=== PATIENT | female | born 1970 | race African-American/Black ===

== ENCOUNTER 2017-12-26 21:08 | Inpatient (IN) | payer MEDICAID ==
[~2017-12-26] VITALS: Ht 157.5 cm; Wt 130.0 kg
[2017-12-26 22:07] LABS: Basophils # (auto) 0.1 uL; Eosinophils # (auto) 0.1 uL; Eosinophils % (auto) 1.2 % (0.0-7.0); Hemoglobin 7.9 g/dL (12.2-16.2); Mean Corpuscular Hemoglobin 15.9 pg (28.0-32.0); Monocytes # (auto) 0.6 uL; Red Cell Distribution Width 18.9 % (11.8-14.3); White Blood Cell 11.2 10^3/uL (4.4-10.8)
[2017-12-26 22:08] LABS: Basophils % (auto) 0.9 % (0.0-2.0); Hematocrit 28.5 % (36.0-46.0); Lymphocytes # (auto) 2.1 uL; Lymphocytes % (auto) 19.2 % (10.0-50.0); Mean Corpuscular Hgb Conc. 27.6 g/dL (32.0-36.0); Mean Corpuscular Volume 57.6 fL (80.0-100.0); Monocytes % (auto) 5.6 % (0.0-12.0); Neutrophils # (auto) 8.2 uL; Neutrophils % (auto) 73.1 % (37.0-80.0); Platelet Count (auto) 425 10^3/uL (140-450); Red Blood Cells 4.95 10^6/uL (4.0-5.20)
[2017-12-26 22:30] LABS: Albumin 3.5 g/dL (3.4-5.0); BUN/Creatinine Ratio 7.4; Bilirubin, Total 0.3 mg/dL (0.2-1.0); Calcium 8.9 mg/dL (8.5-10.1); Magnesium 2.5 mg/dL (1.6-2.6); Potassium 3.9 mmol/L (3.5-5.1); Total Protein 8.4 g/dL (6.4-8.2)
[2017-12-26 22:45] LABS: INR 0.92 (0.9-1.15); Partial Thromboplastin Time 25.6 sec (23.78-33.04); Prothrombin Time 9.9 sec (9.27-12.13)
[2017-12-26 22:52] LABS: Urine Bacteria NONE SEEN /hpf (None Seen); Urine Blood Negative /uL (Negative); Urine Specific Gravity 1.008 (1.001-1.035); Urine WBC 10 /hpf (0 - 5)
[2017-12-27] MEDS ORDERED: ONDANSETRON HCL 4 MG/2 ML VIAL IV ONE ×2 (02:45)
[2017-12-27] MEDS ORDERED: HYDROmorphone HCL 2 MG/ML VL IV ONE ×2 (02:45)
[2017-12-27] MEDS ORDERED: cefTRIAXone 1GM/10ml IVPUSH 10 ML IV ONE (03:45)
[2017-12-27] MEDS ORDERED: ACETAMINOPHEN 500 MG TAB PO PRN (04:45)
[2017-12-27] MEDS ORDERED: HYDROcodone-ACET 5/325MG TAB PO PRN (04:45)
[2017-12-27] MEDS: metroNIDAZOLE 500MG/100ML 100 ML IV SCH ×3 (04:47→21:36)
[2017-12-27] MEDS: SODIUM CHLORIDE 0.9% 1,000 ML IV SCH ×2 (04:47→14:18)
[2017-12-27] MEDS ORDERED: LIDOCAINE HCL 2% TOP JELLY 5ML TOP ONE (04:57)
[2017-12-27] MEDS ORDERED: diphenhdrAMINE HCL 50 MG/1 ML VL IV ONE (05:30)
[2017-12-27 07:25] LABS: Eosinophils # (auto) 0.2 uL; Monocytes # (auto) 0.6 uL; Nucleated Red Blood Cells % 0.1 %
[2017-12-27 07:28] LABS: Basophils # (auto) 0 uL; Basophils % (auto) 0.5 % (0.0-2.0); Eosinophils % (auto) 2.2 % (0.0-7.0); Hematocrit 26.2 % (36.0-46.0); Lymphocytes # (auto) 1.9 uL; Lymphocytes % (auto) 22.2 % (10.0-50.0); Mean Corpuscular Hemoglobin 16.3 pg (28.0-32.0); Mean Corpuscular Volume 58.1 fL (80.0-100.0); Monocytes % (auto) 7.2 % (0.0-12.0); Neutrophils # (auto) 5.9 uL; Neutrophils % (auto) 67.9 % (37.0-80.0); Platelet Count (auto) 407 10^3/uL (140-450); Red Blood Cells 4.51 10^6/uL (4.0-5.20); Red Cell Distribution Width 18.6 % (11.8-14.3); White Blood Cell 8.7 10^3/uL (4.4-10.8)
[2017-12-27 07:34] LABS: Hemoglobin 7.6 g/dL (12.2-16.2)
[2017-12-27 07:47] LABS: BUN/Creatinine Ratio 8.8; Calcium 8.1 mg/dL (8.5-10.1); Potassium 3.7 mmol/L (3.5-5.1)
[2017-12-27 08:10] VITALS: BP 140/85
[2017-12-27 09:55] VITALS: BP 135/71
[2017-12-27] MEDS: MORPHINE SULF INJ 2 MG/ML SYRINGE 1ML IV PRN ×3 (09:55→20:19)
[2017-12-27 13:00] VITALS: BP 120/57
[2017-12-27 17:00] VITALS: BP 138/84
[2017-12-27] MEDS: ONDANSETRON HCL 4 MG/2 ML VIAL IV PRN (20:19)
[2017-12-27] MEDS: cefTRIAXone 1GM/10ml IVPUSH 10 ML IV SCH (21:36)
[2017-12-27 22:08] VITALS: BP 145/68
[2017-12-28] MEDS: SODIUM CHLORIDE 0.9% 1,000 ML IV SCH ×3 (00:24→21:11)
[2017-12-28] MEDS: ONDANSETRON HCL 4 MG/2 ML VIAL IV PRN ×5 (00:36→23:20)
[2017-12-28] MEDS: MORPHINE SULF INJ 2 MG/ML SYRINGE 1ML IV PRN ×4 (00:36→23:20)
[2017-12-28 05:48] VITALS: BP 149/77
[2017-12-28] MEDS: metroNIDAZOLE 500MG/100ML 100 ML IV SCH ×3 (06:10→21:12)
[2017-12-28 08:00] VITALS: BP 140/78
[2017-12-28 12:00] VITALS: BP 139/78
[2017-12-28 17:00] VITALS: BP 134/75
[2017-12-28] MEDS: cefTRIAXone 1GM/10ml IVPUSH 10 ML IV SCH (21:11)
[2017-12-28 22:00] VITALS: BP 148/87
[2017-12-29] VITALS (10 sets, daily range): BP systolic 99–159; BP diastolic 63–93
[2017-12-29] MEDS: MORPHINE SULF INJ 2 MG/ML SYRINGE 1ML IV PRN ×4 (03:09→21:10)
[2017-12-29] MEDS: ONDANSETRON HCL 4 MG/2 ML VIAL IV PRN ×4 (03:10→21:10)
[2017-12-29] MEDS: metroNIDAZOLE 500MG/100ML 100 ML IV SCH ×2 (05:58→14:00)
[2017-12-29] MEDS: SODIUM CHLORIDE 0.9% 1,000 ML IV SCH ×2 (05:59→16:45)
[2017-12-29 06:32] LABS: Basophils # (auto) 0 uL; Eosinophils # (auto) 0.2 uL; Lymphocytes # (auto) 1.3 uL; Mean Corpuscular Hgb Conc. 28.6 g/dL (32.0-36.0); Nucleated Red Blood Cells % 0.2 %; Red Cell Distribution Width 18.6 % (11.8-14.3); White Blood Cell 6.5 10^3/uL (4.4-10.8)
[2017-12-29 06:38] LABS: Basophils % (auto) 0.5 % (0.0-2.0); Eosinophils % (auto) 3.2 % (0.0-7.0); Hematocrit 24.5 % (36.0-46.0); Lymphocytes % (auto) 20.3 % (10.0-50.0); Mean Corpuscular Hemoglobin 16.8 pg (28.0-32.0); Mean Corpuscular Volume 58.6 fL (80.0-100.0); Monocytes # (auto) 0.4 uL; Monocytes % (auto) 6.9 % (0.0-12.0); Neutrophils # (auto) 4.5 uL; Neutrophils % (auto) 69.1 % (37.0-80.0); Platelet Count (auto) 326 10^3/uL (140-450); Red Blood Cells 4.18 10^6/uL (4.0-5.20)
[2017-12-29 06:43] LABS: Albumin 2.9 g/dL (3.4-5.0); Bilirubin, Total 0.3 mg/dL (0.2-1.0); Potassium 3.7 mmol/L (3.5-5.1); Total Protein 7.3 g/dL (6.4-8.2)
[2017-12-29] MEDS: cefTRIAXone 1GM/10ml IVPUSH 10 ML IV SCH (22:24)
[2017-12-30] VITALS (8 sets, daily range): BP systolic 140–159; BP diastolic 68–93
[2017-12-30] MEDS: SODIUM CHLORIDE 0.9% 1,000 ML IV SCH ×3 (02:45→21:29)
[2017-12-30] MEDS: metroNIDAZOLE 500MG/100ML 100 ML IV SCH ×4 (02:48→21:28)
[2017-12-30] MEDS: ONDANSETRON HCL 4 MG/2 ML VIAL IV PRN ×3 (02:48→12:58)
[2017-12-30] MEDS: MORPHINE SULF INJ 2 MG/ML SYRINGE 1ML IV PRN ×4 (02:48→19:40)
[2017-12-30] MEDS ORDERED: GASTROGRAFIN 120 ML SOL ONE (14:36)
[2017-12-30] MEDS: cefTRIAXone 1GM/10ml IVPUSH 10 ML IV SCH (20:30)
[2017-12-31] MEDS: ONDANSETRON HCL 4 MG/2 ML VIAL IV PRN ×4 (02:58→22:39)
[2017-12-31] MEDS: MORPHINE SULF INJ 2 MG/ML SYRINGE 1ML IV PRN ×4 (03:01→22:39)
[2017-12-31 05:00] VITALS: BP 143/90
[2017-12-31] MEDS: metroNIDAZOLE 500MG/100ML 100 ML IV SCH ×3 (05:10→22:38)
[2017-12-31] MEDS: SODIUM CHLORIDE 0.9% 1,000 ML IV SCH ×3 (06:55→22:39)
[2017-12-31 08:16] VITALS: BP 146/77
[2017-12-31 13:50] VITALS: BP 169/77
[2017-12-31 16:23] VITALS: BP 163/79
[2017-12-31] MEDS ORDERED: amLODIPine BESYLATE 5 MG TAB PO SCH (18:33)
[2017-12-31] MEDS ORDERED: ENALAPRILAT 1.25 MG/ML-1ML VIAL IV PRN (19:00)
[2017-12-31 20:10] VITALS: BP 132/91
[2017-12-31] MEDS: cefTRIAXone 1GM/10ml IVPUSH 10 ML IV SCH (20:52)
[2017-12-31 22:00] VITALS: BP 159/94
[2018-01-01 05:00] VITALS: BP 179/82
[2018-01-01] MEDS: metroNIDAZOLE 500MG/100ML 100 ML IV SCH ×3 (05:24→21:32)
[2018-01-01 06:11] VITALS: BP 138/87
[2018-01-01] MEDS: ONDANSETRON HCL 4 MG/2 ML VIAL IV PRN (06:43)
[2018-01-01] MEDS ORDERED: LABE100T4 PO (07:06)
[2018-01-01] MEDS: MORPHINE SULF INJ 2 MG/ML SYRINGE 1ML IV PRN (08:52)
[2018-01-01 08:58] VITALS: BP 129/79
[2018-01-01 12:47] VITALS: BP 151/91
[2018-01-01] MEDS: SODIUM CHLORIDE 0.9% 1,000 ML IV SCH (16:44)
[2018-01-01 17:05] VITALS: BP 144/85
[2018-01-01] MEDS: cefTRIAXone 1GM/10ml IVPUSH 10 ML IV SCH (20:34)
[2018-01-01 21:46] VITALS: BP 142/93
[2018-01-02] MEDS: SODIUM CHLORIDE 0.9% 1,000 ML IV SCH ×2 (01:57→11:39)
[2018-01-02 04:32] VITALS: BP 140/83
[2018-01-02] MEDS: metroNIDAZOLE 500MG/100ML 100 ML IV SCH ×2 (05:04→14:00)
[2018-01-02 08:52] VITALS: BP 158/90
[2018-01-02 11:53] VITALS: BP 160/97
== END 2018-01-02 16:40 | disposition home or self-care (01) | DRG 254 ==
LOC: ER 21:08 → OVERFLOW 21:09 → WEST WING 12-27 08:41
PROVIDERS: ADMIT Nurse Practitioner Family; ATTEND Internal Medicine
PROC: 0D9670Z Drainage of Stomach with Drainage Device, Via Natural or Artificial Opening (ICD-10-PCS; principal; 2017-12-27)
PROC: 30233N1 Transfusion of Nonautologous Red Blood Cells into Peripheral Vein, Percutaneous Approach (ICD-10-PCS; 2017-12-29)
DX: K43.6 Other and unspecified ventral hernia with obstruction, without gangrene (principal); E66.01 Morbid (severe) obesity due to excess calories; N30.00 Acute cystitis without hematuria; Z68.43 Body mass index [BMI] 50.0-59.9, adult; J45.909 Unspecified asthma, uncomplicated; I10 Essential (primary) hypertension; Z90.49 Acquired absence of other specified parts of digestive tract
CPT/HCPCS: 36415; 74176; 74250; 80048; 80053; 81001; 81025; 82150; 83690; 83735; 85014; 85018; 85025; 85610; 85730; 86850; 86900; 86901; 86920; 96374; 96375; 96376; J0696; J2405; J3490

== ENCOUNTER 2018-02-15 13:02 | Inpatient (IN) | payer MEDICAID ==
[~2018-02-15] VITALS: Ht 157.5 cm; Wt 150.0 kg
[~2018-02-15 13:02] MED LIST: FER325T PO; LABE100T4 PO
[2018-02-15] MEDS ORDERED: PANTOPRAZOLE 40 MG/10 ML VIAL IV STA (14:32)
[2018-02-15] MEDS ORDERED: SODIUM CHLORIDE 0.9% 500 ML IVB ONE (14:32)
[2018-02-15] MEDS ORDERED: MORPHINE SULFATE 4 MG/ML SYR/VIAL IV ONE (14:45)
[2018-02-15] MEDS ORDERED: ONDANSETRON HCL 4 MG/2 ML VIAL IV ONE (14:45)
[2018-02-15 15:13] LABS: Eosinophils # (auto) 0.1 uL; Nucleated Red Blood Cells % 0.1 %
[2018-02-15 15:14] LABS: Basophils # (auto) 0.1 uL; Basophils % (auto) 1.1 % (0.0-2.0); Eosinophils % (auto) 1.4 % (0.0-7.0); Hematocrit 34.3 % (36.0-46.0); Hemoglobin 9.9 g/dL (12.2-16.2); Lymphocytes # (auto) 1.5 uL; Lymphocytes % (auto) 16.6 % (10.0-50.0); Mean Corpuscular Hemoglobin 19.4 pg (28.0-32.0); Mean Corpuscular Hgb Conc. 28.8 g/dL (32.0-36.0); Mean Corpuscular Volume 67.4 fL (80.0-100.0); Monocytes # (auto) 0.5 uL; Neutrophils # (auto) 6.6 uL; Neutrophils % (auto) 74.9 % (37.0-80.0); Platelet Count (auto) 359 10^3/uL (140-450); Red Blood Cells 5.09 10^6/uL (4.0-5.20); White Blood Cell 8.8 10^3/uL (4.4-10.8)
[2018-02-15 15:25] LABS: Red Cell Distribution Width 26.5 % (11.8-14.3)
[2018-02-15 15:28] LABS: Albumin 3.2 g/dL (3.4-5.0); BUN/Creatinine Ratio 8.2; Calcium 8.9 mg/dL (8.5-10.1)
[2018-02-15 15:30] LABS: Bilirubin, Total 0.2 mg/dL (0.2-1.0); Total Protein 7.9 g/dL (6.4-8.2)
[2018-02-15] MEDS: SODIUM CHLORIDE 0.9% 1,000 ML IV SCH (15:52)
[2018-02-15] MEDS ORDERED: NITROGLYCERIN 0.4 MG SL TAB SL PRN (16:00)
[2018-02-15] MEDS ORDERED: LABETALOL HCL 5 MG/ML ML 20ML VIAL IV PRN ×2 (16:00)
[2018-02-15] MEDS ORDERED: LORazepam 2MG/ML-1ML VIAL IV PRN (16:00)
[2018-02-15] MEDS ORDERED: cefTRIAXone 1GM/50ML D5W 50 ML IV ONE (16:00)
[2018-02-15] MEDS ORDERED: MORPHINE SULFATE 4 MG/ML SYR/VIAL IV PRN (16:00)
[2018-02-15] MEDS ORDERED: GASTROGRAFIN 120 ML SOL ONE (16:16)
[2018-02-15] MEDS ORDERED: FAMOTIDINE (10MG/ML) 2ML VL IV ONE (16:30)
[2018-02-15] MEDS ORDERED: metroNIDAZOLE 500MG/100ML 100 ML IV SCH (18:00)
[2018-02-15] MEDS: metroNIDAZOLE 500MG/100ML 100 ML IV SCH (19:51)
[2018-02-15 20:00] VITALS: BP 157/96
[2018-02-15 20:03] LABS: Urine Bacteria NONE SEEN /hpf (None Seen); Urine Blood 2+ /uL (Negative); Urine Mucus FEW (None Seen); Urine Specific Gravity 1.022 (1.001-1.035); Urine WBC 1 /hpf (0 - 5)
[2018-02-15 22:00] VITALS: BP_SYST 157; BP_SYST 159; BP_DIAS 96
[2018-02-15] MEDS: MORPHINE SULFATE 4 MG/ML SYR/VIAL IV PRN (22:08)
[2018-02-16] MEDS: metroNIDAZOLE 500MG/100ML 100 ML IV SCH ×4 (01:47→20:54)
[2018-02-16] MEDS: SODIUM CHLORIDE 0.9% 1,000 ML IV SCH ×3 (01:52→22:36)
[2018-02-16] MEDS: MORPHINE SULFATE 4 MG/ML SYR/VIAL IV PRN ×4 (03:38→20:35)
[2018-02-16 05:44] VITALS: BP 150/88
[2018-02-16] MEDS: ONDANSETRON HCL 4 MG/2 ML VIAL IV PRN ×3 (06:08→20:35)
[2018-02-16 09:00] VITALS: BP 157/86
[2018-02-16] MEDS: FAMOTIDINE (10MG/ML) 2ML VL IV SCH ×2 (10:31→22:36)
[2018-02-16 13:00] VITALS: BP 140/84
[2018-02-16] MEDS ORDERED: ACETAMINOPHEN 500 MG TAB PO PRN (13:30)
[2018-02-16 17:00] VITALS: BP 168/98
[2018-02-16] MEDS: cefTRIAXone 1GM/50ML D5W 50 ML IV SCH (17:37)
[2018-02-16 22:00] VITALS: BP 145/84
[2018-02-17] MEDS: metroNIDAZOLE 500MG/100ML 100 ML IV SCH ×4 (02:15→20:06)
[2018-02-17] MEDS: MORPHINE SULFATE 4 MG/ML SYR/VIAL IV PRN ×3 (02:16→20:33)
[2018-02-17] MEDS: ONDANSETRON HCL 4 MG/2 ML VIAL IV PRN ×2 (02:16→21:26)
[2018-02-17] MEDS: LABETALOL HCL 5 MG/ML ML 20ML VIAL IV PRN ×2 (02:17→17:30)
[2018-02-17 05:20] VITALS: BP 143/84
[2018-02-17] MEDS: SODIUM CHLORIDE 0.9% 1,000 ML IV SCH ×2 (07:52→17:52)
[2018-02-17 08:37] VITALS: BP 157/86
[2018-02-17] MEDS: FAMOTIDINE (10MG/ML) 2ML VL IV SCH ×2 (09:31→21:25)
[2018-02-17 13:00] VITALS: BP 149/73
[2018-02-17 17:00] VITALS: BP 159/88
[2018-02-17] MEDS: cefTRIAXone 1GM/50ML D5W 50 ML IV SCH (17:26)
[2018-02-17 22:00] VITALS: BP 148/80
[2018-02-18] MEDS: metroNIDAZOLE 500MG/100ML 100 ML IV SCH ×4 (01:14→19:49)
[2018-02-18] MEDS: SODIUM CHLORIDE 0.9% 1,000 ML IV SCH ×3 (03:52→23:52)
[2018-02-18 05:00] VITALS: BP 130/60
[2018-02-18 08:47] VITALS: BP 155/81
[2018-02-18] MEDS: FAMOTIDINE (10MG/ML) 2ML VL IV SCH ×2 (09:51→21:16)
[2018-02-18] MEDS: LABETALOL HCL 5 MG/ML ML 20ML VIAL IV PRN ×2 (11:51→18:47)
[2018-02-18 12:52] VITALS: BP 151/86
[2018-02-18 17:02] VITALS: BP 158/98
[2018-02-18] MEDS: cefTRIAXone 1GM/50ML D5W 50 ML IV SCH (17:53)
[2018-02-18 22:00] VITALS: BP 147/86
[2018-02-19] MEDS: metroNIDAZOLE 500MG/100ML 100 ML IV SCH ×4 (01:21→21:28)
[2018-02-19 05:00] VITALS: BP 131/75
[2018-02-19 07:08] LABS: Magnesium 2.3 mg/dL (1.6-2.6); Potassium 3.1 mmol/L (3.5-5.1)
[2018-02-19 08:50] VITALS: BP 146/77
[2018-02-19] MEDS: POTASSIUM CHL 20MEQ/100ML 100 ML IV SCH ×2 (09:10→15:46)
[2018-02-19] MEDS: FAMOTIDINE (10MG/ML) 2ML VL IV SCH ×2 (10:21→21:43)
[2018-02-19] MEDS: SODIUM CHLORIDE 0.9% 1,000 ML IV SCH ×2 (10:21→19:52)
[2018-02-19 12:33] VITALS: BP 144/84
[2018-02-19 17:13] VITALS: BP 144/81
[2018-02-19] MEDS: cefTRIAXone 1GM/50ML D5W 50 ML IV SCH (18:00)
[2018-02-19] MEDS: LABETALOL HCL 5 MG/ML ML 20ML VIAL IV PRN (21:39)
[2018-02-19 22:00] VITALS: BP 158/97
[2018-02-20] VITALS (7 sets, daily range): BP systolic 129–162; BP diastolic 70–87
[2018-02-20] MEDS: MORPHINE SULFATE 4 MG/ML SYR/VIAL IV PRN ×2 (00:15→17:46)
[2018-02-20] MEDS: LABETALOL HCL 5 MG/ML ML 20ML VIAL IV PRN (00:16)
[2018-02-20] MEDS: metroNIDAZOLE 500MG/100ML 100 ML IV SCH ×4 (01:49→21:02)
[2018-02-20] MEDS: SODIUM CHLORIDE 0.9% 1,000 ML IV SCH ×3 (05:52→19:43)
[2018-02-20] MEDS: FAMOTIDINE (10MG/ML) 2ML VL IV SCH ×2 (10:57→21:10)
[2018-02-20] MEDS: cefTRIAXone 1GM/50ML D5W 50 ML IV SCH (17:45)
[2018-02-20] MEDS: ONDANSETRON HCL 4 MG/2 ML VIAL IV PRN (17:46)
[2018-02-21] MEDS: metroNIDAZOLE 500MG/100ML 100 ML IV SCH ×3 (01:30→14:25)
[2018-02-21 05:08] VITALS: BP 115/66
[2018-02-21 07:59] VITALS: BP 146/75
[2018-02-21] MEDS: FAMOTIDINE (10MG/ML) 2ML VL IV SCH (08:42)
[2018-02-21 11:39] VITALS: BP 128/82
[2018-02-21] MEDS: MORPHINE SULFATE 4 MG/ML SYR/VIAL IV PRN (12:40)
[2018-02-21] MEDS: SODIUM CHLORIDE 0.9% 1,000 ML IV SCH (14:25)
[2018-02-21 16:31] VITALS: BP 143/86
[2018-02-21] MEDS: cefTRIAXone 1GM/50ML D5W 50 ML IV SCH (18:00)
[2018-02-21 18:26] VITALS: BP 143/86
== END 2018-02-21 16:30 | disposition home or self-care (01) | DRG 247 ==
LOC: ER 13:02 → TELE-WESTW 13:03 → ER 16:28 → TELE-WESTW 02-19 21:30
PROVIDERS: ADMIT Internal Medicine; ATTEND Internal Medicine
DX: K56.609 Unspecified intestinal obstruction, unspecified as to partial versus complete obstruction (principal); E44.1 Mild protein-calorie malnutrition; E66.01 Morbid (severe) obesity due to excess calories; D64.9 Anemia, unspecified; I10 Essential (primary) hypertension; J45.909 Unspecified asthma, uncomplicated; K56.7 Ileus, unspecified; Z90.49 Acquired absence of other specified parts of digestive tract; Z98.51 Tubal ligation status; Z82.49 Family history of ischemic heart disease and other diseases of the circulatory system; Z68.44 Body mass index [BMI] 60.0-69.9, adult
CPT/HCPCS: 36415; 74176; 74250; 80053; 81001; 82150; 83690; 83735; 84132; 85025; 87081; 87086; 93005; 93970; 94761; 96361; 96374; 96375; C9113; G0378; J0696; J2405; J3480; J3490

== ENCOUNTER 2018-09-14 01:04 | Inpatient (IN) | payer MEDICAID ==
[~2018-09-14] VITALS: Ht 157.5 cm; Wt 135.0 kg
[2018-09-14 02:18] LABS: Basophils # (auto) 0 uL; Basophils % (auto) 0.5 % (0.0-2.0); Hemoglobin 10.7 g/dL (12.2-16.2); Nucleated Red Blood Cells % 0.1 %
[2018-09-14 02:19] LABS: Eosinophils # (auto) 0.1 uL; Eosinophils % (auto) 1.4 % (0.0-7.0); Lymphocytes # (auto) 1.9 uL; Lymphocytes % (auto) 19.2 % (10.0-50.0); Mean Corpuscular Hemoglobin 20.5 pg (28.0-32.0); Mean Corpuscular Hgb Conc. 30.7 g/dL (32.0-36.0); Mean Corpuscular Volume 66.9 fL (80.0-100.0); Monocytes # (auto) 0.9 uL; Monocytes % (auto) 9.3 % (0.0-12.0); Neutrophils # (auto) 6.8 uL; Neutrophils % (auto) 69.6 % (37.0-80.0); Platelet Count (auto) 452 10^3/uL (140-450); Red Blood Cells 5.24 10^6/uL (4.0-5.20); Red Cell Distribution Width 18.3 % (11.8-14.3); White Blood Cell 9.8 10^3/uL (4.4-10.8)
[2018-09-14 02:44] LABS: Albumin 3.3 g/dL (3.4-5.0); BUN/Creatinine Ratio 7.9; Calcium 10.1 mg/dL (8.5-10.1); Potassium 3.4 mmol/L (3.5-5.1)
[2018-09-14 02:47] LABS: Bilirubin, Total 0.2 mg/dL (0.2-1.0); Total Protein 8.7 g/dL (6.4-8.2)
[2018-09-14 04:19] LABS: Urine Bacteria FEW /hpf (None Seen); Urine Blood Negative /uL (Negative); Urine Mucus FEW (None Seen); Urine Specific Gravity 1.025 (1.001-1.035); Urine WBC 3 /hpf (0 - 5)
[2018-09-14] MEDS ORDERED: SODIUM CHLORIDE 0.9% 500 ML IVB ONE (07:16)
[2018-09-14] MEDS ORDERED: GASTROGRAFIN 30 ML SOL ONE (07:24)
[2018-09-14] MEDS ORDERED: MORPHINE SULFATE 4 MG/ML SYR/VIAL IV ONE (07:30)
[2018-09-14] MEDS ORDERED: ONDANSETRON HCL 4 MG/2 ML VIAL IV ONE (07:30)
[2018-09-14 07:55] LABS: Amylase 31 U/L (25-115); Lipase 38 U/L (73-393)
[2018-09-14 08:04] LABS: INR 0.94 (0.9-1.15); Partial Thromboplastin Time 27.7 sec (23.64-32.05); Prothrombin Time 10.2 sec (9.06-12.60)
[2018-09-14] MEDS ORDERED: MORPHINE SULF INJ 2 MG/ML SYRINGE 1ML IV PRN (08:45)
[2018-09-14] MEDS ORDERED: PROMETHAZINE HCL 25 MG/ML 1ML IV PRN (08:45)
[2018-09-14] MEDS ORDERED: TEMAZEPAM 15 MG CAP PO PRN (08:45)
[2018-09-14] MEDS ORDERED: LORazepam 0.5 MG TAB PO PRN (08:45)
[2018-09-14] MEDS ORDERED: NITROGLYCERIN 0.4 MG SL TAB SL PRN (08:45)
[2018-09-14] MEDS: cefTRIAXone 1GM/50ML D5W 50 ML IV SCH (08:50)
[2018-09-14] MEDS: FAMOTIDINE (10MG/ML) 2ML VL IV SCH ×2 (09:01→22:09)
[2018-09-14] MEDS: SOD CHL 0.9%/ KCL 40MEQ 1,000 ML IV SCH ×4 (09:02→22:09)
--- NOTE | 2018-09-14 10:00 | NUR ---
RECEIVED REPORT FROM ANISHA HAMPTON. PATIENT IS AWAITING ABDOMINAL CT WITH ORAL CONTRAST, CONTRAST HAS BEEN ADMINISTERED APPROXIMATELY 2 HOURS AGO. NASOGASTRIC TUBE TO BE INITIATED AND SET TO LOW INTERMITTENT SUCTION. PATIENT HAS PENDING SURGICAL AND GI CONSULTS.
--- NOTE | 2018-09-14 11:00 | NUR ---
Tech to bring the patient to Radiology.
[2018-09-14 11:37] VITALS: BP 121/77
[2018-09-14 12:14] LABS: Hematocrit 31.3 % (36.0-46.0); Hemoglobin 9.5 g/dL (12.2-16.2)
[2018-09-14] MEDS ORDERED: ALBUAER3 IN (12:58)
[2018-09-14] MEDS ORDERED: DOCU-94 PO (12:58)
--- NOTE | 2018-09-14 13:50 | NUR ---
NG Tube inserted by Charge Nurse Azam on the left nares.
[2018-09-14] MEDS: MORPHINE SULFATE 4 MG/ML SYR/VIAL IV PRN ×2 (14:11→20:05)
[2018-09-14] MEDS: metroNIDAZOLE 500MG/100ML 100 ML IV SCH ×2 (14:11→22:09)
--- NOTE | 2018-09-14 14:11 | NUR ---
Patient stated her stomach pain level at 7/10 at this time. Morphine Sulf 2 mg IVP given for pain as ordered.
[2018-09-14 16:38] VITALS: BP 119/73
--- NOTE | 2018-09-14 17:10 | NUR ---
Patient refused to use the bedside commode, preferred to use the bathroom. Clamped the NGT, patient went to the bathroom. Instructed the patient to pull the red string if he needs help, or press the call light when she's back to bed. Patient verbalized understanding.
[2018-09-14 18:43] LABS: Hemoglobin 9.8 g/dL (12.2-16.2)
[2018-09-14 19:00] LABS: Hematocrit 33.7 % (36.0-46.0)
--- NOTE | 2018-09-14 19:15 | NUR ---
Opening Shift Note Assumed care of patient, awake and alert. No S/S of distress/SOB or pain. Instructed on POC and to call for assist PRN, will continue to monitor for changes Q1hr and PRN. Side rails up x2. Bed locked in lowest position. Call light within reach. NG tube intact connected to low intermittent suction.
[2018-09-14 21:43] VITALS: BP 128/88
[2018-09-15 02:37] LABS: Hemoglobin 9.2 g/dL (12.2-16.2)
[2018-09-15 02:39] LABS: Hematocrit 31.3 % (36.0-46.0)
[2018-09-15] MEDS: MORPHINE SULFATE 4 MG/ML SYR/VIAL IV PRN ×4 (04:34→21:53)
[2018-09-15 05:18] VITALS: BP 142/80
[2018-09-15] MEDS: metroNIDAZOLE 500MG/100ML 100 ML IV SCH ×3 (05:46→21:22)
[2018-09-15 07:28] VITALS: BP 119/83
--- NOTE | 2018-09-15 07:45 | NUR ---
Endorsed care to day shift RN.
--- NOTE | 2018-09-15 08:00 | NUR ---
ASSESSMENT NOTE PT IS ALERT ORIENTED X4, RESTING IN BED IN HIGH LOPEZ POSITION, FOR ASPIRATION PRECAUTIONS, NGT TO LOW INTERMITTENT SUCTION , SELF REPOSITION NEEDED, PAIN 0/10 AT THIS TIME, CALL LIGHT WITHIN REACH.
[2018-09-15] MEDS: FAMOTIDINE (10MG/ML) 2ML VL IV SCH ×2 (09:03→21:22)
[2018-09-15] MEDS: cefTRIAXone 1GM/50ML D5W 50 ML IV SCH (09:03)
[2018-09-15] MEDS: SOD CHL 0.9%/ KCL 40MEQ 1,000 ML IV SCH ×2 (09:45→18:05)
--- NOTE | 2018-09-15 10:52 | NUR ---
DR MG IS HERE, SAID TO CLAMP THE NGT AND GIVE PT A FEW ICE CHIPS AND SEE HOW SHE DO, AND IF SHE DID NOT TOLERATED CONNECT THE NGT BACK TO INTERMITTENT SUCTION.
[2018-09-15 12:00] VITALS: BP 134/88
--- NOTE | 2018-09-15 12:53 | NUR ---
MD BROWN AT BEDSIDE NEW ORDERS GIVEN, READ BACK AND VERIFIED, SEE ORDERS. WILL FOLLOW THROUGH WITH NEW ORDERS.
--- NOTE | 2018-09-15 13:40 | NUR ---
DR HINSON AT BED SIDE FOLLOWING UP ON PT WITH NEW ORDERS
[2018-09-15] MEDS ORDERED: GASTROGRAFIN 120 ML SOL ONE (13:50)
--- NOTE | 2018-09-15 14:00 | NUR ---
OUT TO RADIOLOGY FOR GASTROGRAFIN SERIES VIA A WHEEL CHAIR
--- NOTE | 2018-09-15 15:27 | NUR ---
PATIENT IS BACK FROM RADIOLOGY, NO DISTRESS NOTED.
[2018-09-15 16:34] VITALS: BP 144/86
--- NOTE | 2018-09-15 18:45 | NUR ---
PT CONTINUE STABLE, TOLERATED CLEAR DIET WELL, CONTINUE MONITORING
--- NOTE | 2018-09-15 19:05 | NUR ---
Opening Shift Note Assumed care of patient, awake and alert. No S/S of distress/SOB or pain. Instructed on POC and to call for assist PRN, will continue to monitor for changes Q1hr and PRN. Side rails up x2. Bed locked in lowest position. Call light within reach.
[2018-09-15 22:05] VITALS: BP 123/70
--- NOTE | 2018-09-16 02:03 | NUR ---
Rounds Patient in bed asleep with no signs of distress/sob/pain. Will continue to monitor.
[2018-09-16 04:42] VITALS: BP 147/82
[2018-09-16] MEDS: metroNIDAZOLE 500MG/100ML 100 ML IV SCH ×3 (05:18→22:13)
[2018-09-16] MEDS: SOD CHL 0.9%/ KCL 40MEQ 1,000 ML IV SCH ×3 (05:18→19:05)
[2018-09-16] MEDS: MORPHINE SULFATE 4 MG/ML SYR/VIAL IV PRN ×3 (05:19→19:04)
[2018-09-16 06:02] LABS: Basophils # (auto) 0 uL; Basophils % (auto) 0.8 % (0.0-2.0); Eosinophils # (auto) 0.2 uL; Eosinophils % (auto) 2.7 % (0.0-7.0); Hematocrit 30.6 % (36.0-46.0); Hemoglobin 9.2 g/dL (12.2-16.2); Lymphocytes # (auto) 1.1 uL; Lymphocytes % (auto) 17.4 % (10.0-50.0); Mean Corpuscular Hemoglobin 20.6 pg (28.0-32.0); Mean Corpuscular Hgb Conc. 30.1 g/dL (32.0-36.0); Mean Corpuscular Volume 68.3 fL (80.0-100.0); Monocytes # (auto) 0.6 uL; Monocytes % (auto) 8.9 % (0.0-12.0); Neutrophils # (auto) 4.5 uL; Neutrophils % (auto) 70.2 % (37.0-80.0); Platelet Count (auto) 319 10^3/uL (140-450); Red Blood Cells 4.49 10^6/uL (4.0-5.20); Red Cell Distribution Width 18.1 % (11.8-14.3); White Blood Cell 6.4 10^3/uL (4.4-10.8)
[2018-09-16 06:12] LABS: BUN/Creatinine Ratio 7.4; Calcium 8.3 mg/dL (8.5-10.1); Potassium 3.6 mmol/L (3.5-5.1)
[2018-09-16 06:21] LABS: CRP High Sensitivity 1.35 mg/dL (< 0.3)
--- NOTE | 2018-09-16 07:15 | NUR ---
Endorsed care to day shift RN. Patient in bed awake with no signs of distress.
--- NOTE | 2018-09-16 07:30 | NUR ---
Opening Shift Note Assumed care of patient, awake and alert. Sitting up at bedside, watching TV. No report of nausea or pain at this time. Bed is locked, with side-rails up x 2 for safety. Call light on hand, instructed on POC and to call for assist PRN, will continue to monitor for changes Q1hr and PRN.
[2018-09-16] MEDS: FAMOTIDINE (10MG/ML) 2ML VL IV SCH ×2 (08:38→22:12)
[2018-09-16] MEDS: cefTRIAXone 1GM/50ML D5W 50 ML IV SCH (08:38)
[2018-09-16 08:43] VITALS: BP 144/90
[2018-09-16 12:38] VITALS: BP 146/89
--- NOTE | 2018-09-16 13:55 | NUR ---
NUTRITION ASSESSMENT NOTES Please refer to link notes of nutrition screen form filed under the intervention section of the plan of care for further details. Est. Needs based on AdBW (72 kg): 1450 kcal to 1800 kcal (20-25 kcal/kgAdBW), 72 gms to 86 gms pro (1.0-1.2 gms/kgBW). Will continue to monitor pertinent labs and reassess nutrient need prn Thank you. Addendum: 09/16/18 at [address] Amended: Links added.
[2018-09-16 16:38] VITALS: BP 143/85
[2018-09-16 22:00] VITALS: BP 131/82
[2018-09-17 05:00] VITALS: BP 133/80
[2018-09-17] MEDS: metroNIDAZOLE 500MG/100ML 100 ML IV SCH (06:01)
[2018-09-17] MEDS: SOD CHL 0.9%/ KCL 40MEQ 1,000 ML IV SCH (06:01)
[2018-09-17] MEDS: MORPHINE SULFATE 4 MG/ML SYR/VIAL IV PRN (06:03)
[2018-09-17 06:06] LABS: Hematocrit 30.7 % (36.0-46.0); Hemoglobin 9.2 g/dL (12.2-16.2); Lymphocytes # (auto) 1.2 uL; Monocytes # (auto) 0.5 uL; Neutrophils # (auto) 3.8 uL; White Blood Cell 5.7 10^3/uL (4.4-10.8)
[2018-09-17 06:08] LABS: Basophils # (auto) 0.1 uL; Basophils % (auto) 0.9 % (0.0-2.0); Eosinophils # (auto) 0.1 uL; Eosinophils % (auto) 2.6 % (0.0-7.0); Lymphocytes % (auto) 20.3 % (10.0-50.0); Mean Corpuscular Hemoglobin 20.3 pg (28.0-32.0); Mean Corpuscular Volume 67.7 fL (80.0-100.0); Monocytes % (auto) 9.7 % (0.0-12.0); Neutrophils % (auto) 66.5 % (37.0-80.0); Platelet Count (auto) 305 10^3/uL (140-450); Red Blood Cells 4.53 10^6/uL (4.0-5.20); Red Cell Distribution Width 17.8 % (11.8-14.3)
[2018-09-17 06:39] LABS: BUN/Creatinine Ratio 6.7; Calcium 8.6 mg/dL (8.5-10.1); Potassium 3.5 mmol/L (3.5-5.1)
[2018-09-17 08:38] VITALS: BP 161/78
[2018-09-17] MEDS: FAMOTIDINE (10MG/ML) 2ML VL IV SCH (08:45)
[2018-09-17] MEDS ORDERED: METO-159 PO (09:15)
[2018-09-17] MEDS ORDERED: METOPROLOL TARTRATE 50 MG TAB PO ONE (09:45)
[2018-09-17 13:00] VITALS: BP 134/80
--- NOTE | 2018-09-17 14:32 | NUR ---
Informed Dr. Fraga that patient needs midline, but unsure if she will be discharged today. ND verbalized he will round her and decide.
[2018-09-17 17:20] VITALS: BP 165/73
[2018-09-17 17:38] VITALS: BP 135/61
[2018-09-17] MEDS ORDERED: METOPROLOL TARTRATE 50 MG TAB PO SCH (22:00)
== END 2018-09-17 18:30 | disposition home or self-care (01) | DRG 254 ==
LOC: ER 01:04 → TELE 08:36 → TELE-EAST 10:33
PROVIDERS: ADMIT Internal Medicine; ATTEND Internal Medicine
DX: K40.30 Unilateral inguinal hernia, with obstruction, without gangrene, not specified as recurrent (principal); E66.01 Morbid (severe) obesity due to excess calories; Z68.43 Body mass index [BMI] 50.0-59.9, adult; I10 Essential (primary) hypertension; E87.6 Hypokalemia; N39.0 Urinary tract infection, site not specified; J45.909 Unspecified asthma, uncomplicated; D64.9 Anemia, unspecified; Z86.14 Personal history of Methicillin resistant Staphylococcus aureus infection; Z90.49 Acquired absence of other specified parts of digestive tract; I25.10 Atherosclerotic heart disease of native coronary artery without angina pectoris; Z98.51 Tubal ligation status
CPT/HCPCS: 36415; 74021; 74176; 74250; 80048; 80053; 81001; 82150; 83690; 84702; 85014; 85018; 85025; 85045; 85610; 85652; 85730; 86141; 87081; 94761; 96361; 96365; 96375; G0378; J0696; J2405; J3490

== ENCOUNTER 2019-07-09 17:53 | Inpatient (IN) | payer MEDICAID ==
[~2019-07-09] VITALS: Ht 157.5 cm; Wt 122.0 kg
[~2019-07-09 17:53] MED LIST changes: +ALBUAER3 IN; +DOCU-94 PO; -FER325T PO; -LABE100T4 PO; +METO-159 PO
[2019-07-09 19:05] LABS: Basophils # (auto) 0 10 ^3/uL (0-0.2); Eosinophils # (auto) 0.1 10 ^3/uL (0-0.8); Eosinophils % (auto) 1.8 % (0.0-7.0); Lymphocytes # (auto) 1.2 10 ^3/uL (0.4-5.4); Mean Corpuscular Hemoglobin 18.5 pg (28.0-32.0); Mean Corpuscular Hgb Conc. 29.5 g/dL (32.0-36.0); Monocytes # (auto) 0.5 10 ^3/uL (0-1.3)
[2019-07-09 19:07] LABS: Basophils % (auto) 0.4 % (0.0-2.0); Hematocrit 30.4 % (36.0-46.0); Lymphocytes % (auto) 20.5 % (10.0-50.0); Mean Corpuscular Volume 62.6 fL (80.0-100.0); Monocytes % (auto) 8.5 % (0.0-12.0); Neutrophils # (auto) 4.2 10 ^3/uL (1.6-8.6); Neutrophils % (auto) 68.8 % (37.0-80.0); Platelet Count (auto) 286 10^3/uL (140-450); Red Blood Cells 4.85 10^6/uL (4.0-5.20); Red Cell Distribution Width 19.9 % (11.8-14.3); White Blood Cell 6.1 10^3/uL (4.4-10.8)
[2019-07-09 19:29] LABS: Calcium 8.8 mg/dL (8.5-10.1); Potassium 3.1 mmol/L (3.5-5.1)
[2019-07-09 19:35] LABS: Albumin 3.2 g/dL (3.4-5.0); Bilirubin, Total 0.2 mg/dL (0.2-1.0); Total Protein 8.2 g/dL (6.4-8.2)
[2019-07-09] MEDS ORDERED: IOHEXOL 300 MG/ML 100ML BOTTLE IJ ONE (20:00)
[2019-07-09 21:57] LABS: INR 0.94 (0.9-1.15)
[2019-07-09 21:58] LABS: Partial Thromboplastin Time 25.4 sec (23.64-32.05)
[2019-07-09 23:47] LABS: Urine Bacteria FEW /hpf (None Seen); Urine Blood Negative /uL (Negative); Urine Hyaline Cast FEW /lpf (0 - 2); Urine Mucus FEW (None Seen); Urine Specific Gravity 1.033 (1.001-1.035); Urine WBC 5 /hpf (0 - 5)
[2019-07-10] MEDS ORDERED: D5W/SOD CHL 0.45% 1,000 ML IV ONE ×4 (03:30→11:40)
[2019-07-10] MEDS ORDERED: MORPHINE SULFATE 4 MG/ML SYR/VIAL IV ONE (03:30)
[2019-07-10] MEDS ORDERED: SODIUM CHLORIDE 0.9% 1,000 ML IV ONE (03:30)
[2019-07-10] MEDS ORDERED: ONDANSETRON HCL 4 MG/2 ML VIAL IV ONE (03:30)
[2019-07-10] MEDS ORDERED: ALBUTEROL SULF 2.5 MG/0.5ML(0.5%) NEB SOLN NEB PRN (04:30)
[2019-07-10] MEDS ORDERED: POTASSIUM CHL 20MEQ/100ML 100 ML IV ONE (04:30)
[2019-07-10] MEDS ORDERED: hydrALAZINE HCL 20 MG/ML VL IV PRN (04:30)
[2019-07-10] MEDS ORDERED: D5W/SOD CHLO 0.9% 1,000 ML IV SCH (04:30)
[2019-07-10] MEDS ORDERED: NITROGLYCERIN 0.4 MG SL TAB SL PRN (04:45)
[2019-07-10] MEDS ORDERED: MORPHINE SULF INJ 2 MG/ML SYRINGE 1ML IV PRN (04:45)
--- NOTE | 2019-07-10 07:55 | NUR ---
Telemetry admit from ER JUANA HERNANDEZ admitted to Telemetry unit after SBAR received. Patient oriented to Chanel atkinson RN, unit, room, bed, and unit policies regarding patient care and visiting hours. Patient now on continuous telemetry monitoring, tele box # 79 and telemetry reading on arrival to unit is 83. Patient on NGT to low intermitent suction, weighed by bedscale and encouraged to call if they need something. All questions and concerns addressed, patient verbalized understanding.
[2019-07-10] MEDS: PANTOPRAZOLE 40 MG/10 ML VIAL INJ IV SCH (09:32)
[2019-07-10] MEDS: ONDANSETRON HCL 4 MG/2 ML VIAL IV PRN ×2 (09:33→21:18)
[2019-07-10 09:45] VITALS: BP 137/84
[2019-07-10] MEDS ORDERED: GASTROGRAFIN 120 ML SOL ONE (09:45)
--- NOTE | 2019-07-10 09:56 | NUR ---
Med Rec Tried to obtain med rec per patient she is currently not taking medications. Primary rn made aware.
[2019-07-10 11:17] VITALS: BP 154/80
[2019-07-10] MEDS: MORPHINE SULFATE 4 MG/ML SYR/VIAL IV PRN ×2 (12:46→21:19)
--- NOTE | 2019-07-10 12:53 | NUR ---
patient off unit for small bowel series. Will resume scheduled medication upon return to unit
[2019-07-10 13:00] VITALS: BP 146/80
[2019-07-10] MEDS: D5W/SOD CHLO 0.9% 1,000 ML IV SCH (14:30)
--- NOTE | 2019-07-10 14:40 | NUR ---
RT NOTE: NO TX INDICATED AT THIS TIME. NO SIGNS OF RESPIRATORY DISTRESS NOTED. LUNG SOUNDS CLEAR/DIMINISHED. ON RA SPO2 95 HR 90 RR 18. RN BEDSIDE. PT AWARE TO PAGE FOR RESPIRATORY IF NEED FOR TX ARISES. WILL CONTINUE TO MONITOR.
--- NOTE | 2019-07-10 14:50 | NUR ---
Dr. Segura at bedside, discussed plan of care with patient. will continue to monitor q1hr and prn
[2019-07-10 17:00] VITALS: BP 153/85
--- NOTE | 2019-07-10 18:42 | NUR ---
MRSA SWAP COLLECTED AND SENT PER PROTOCOL DUE TO PAST HISTORY OF MRSA.
--- NOTE | 2019-07-10 19:14 | NUR ---
Respiratory note: ASSESSMENT FOR PRN MED NEB TX. HR 86, SPO2 96% ON ROOM AIR, RR 19, BS DIMINISHED. PT PRESENTING NO RESPIRATORY DISTRESS AT THIS TIME. MED NEB TX NOT INDICATED. PT AWARE OF PRN MED NEB TXS AND TO HAVE RT PAGED IF NEEDED. WILL CONTINUE TO MONITOR.
--- NOTE | 2019-07-10 19:31 | NUR ---
Opening Shift Note Assumed care of patient, awake and alert x 4. No S/S of distress/SOB. Bed is in lowest position and locked. Call light within reach. Board updated. Tele box number matches monitor and leads are in correct placement. NG tube is secured to right nare and is draining scant green drainage. End of NG tube is 68 cm. Instructed on POC and to call for assist PRN, will continue to monitor for changes Q1hr and PRN.
[2019-07-10 22:00] VITALS: BP 122/78
[2019-07-11] MEDS: D5W/SOD CHLO 0.9% 1,000 ML IV SCH ×2 (00:30→12:35)
[2019-07-11 05:00] VITALS: BP 147/80
--- NOTE | 2019-07-11 05:56 | NUR ---
Spoke to PIERCE Mcallister regarding patient's sustained sinus tachycardia in 130s-140s. Patient reports no pain and vitals are all WNL, except for a slightly elevated BP (147/80). EKG revealed sinus tachycardia with frequent multiform premature complexes. PIERCE Mcallister notified of low potassium yesterday (3.1). Per Mcallister, continue to monitor and wait for BMP to be completed.
[2019-07-11 06:26] LABS: Basophils # (auto) 0 10 ^3/uL (0-0.2); Eosinophils # (auto) 0 10 ^3/uL (0-0.8); Eosinophils % (auto) 0.8 % (0.0-7.0); Hematocrit 28.1 % (36.0-46.0); Hemoglobin 8.1 g/dL (12.2-16.2); Monocytes # (auto) 0.5 10 ^3/uL (0-1.3); White Blood Cell 5.9 10^3/uL (4.4-10.8)
[2019-07-11 06:29] LABS: Basophils % (auto) 0.5 % (0.0-2.0); Lymphocytes # (auto) 0.8 10 ^3/uL (0.4-5.4); Lymphocytes % (auto) 13.6 % (10.0-50.0); Mean Corpuscular Hemoglobin 18.4 pg (28.0-32.0); Mean Corpuscular Hgb Conc. 28.6 g/dL (32.0-36.0); Mean Corpuscular Volume 64.3 fL (80.0-100.0); Neutrophils # (auto) 4.5 10 ^3/uL (1.6-8.6); Neutrophils % (auto) 76.1 % (37.0-80.0); Platelet Count (auto) 263 10^3/uL (140-450); Red Blood Cells 4.38 10^6/uL (4.0-5.20); Red Cell Distribution Width 19.7 % (11.8-14.3)
[2019-07-11 06:42] LABS: Potassium 3.1 mmol/L (3.5-5.1)
[2019-07-11 06:51] LABS: Albumin 2.8 g/dL (3.4-5.0); BUN/Creatinine Ratio 11.9; Bilirubin, Total 0.8 mg/dL (0.2-1.0); Calcium 8.6 mg/dL (8.5-10.1); Magnesium 2.5 mg/dL (1.6-2.6); Total Protein 7.4 g/dL (6.4-8.2)
[2019-07-11] MEDS: ONDANSETRON HCL 4 MG/2 ML VIAL IV PRN ×3 (06:52→20:29)
[2019-07-11] MEDS: MORPHINE SULFATE 4 MG/ML SYR/VIAL IV PRN ×3 (06:52→20:30)
--- NOTE | 2019-07-11 07:30 | NUR ---
OPENING SHIFT NOTE Assumed care patient currently sleeping, no signs or symptoms of distress/sob/pain noted. Patient currently on RA. Bed in low position, locked, and call light within reach. Will continue care.
[2019-07-11 09:00] VITALS: BP 145/91
--- NOTE | 2019-07-11 10:00 | NUR ---
ICE CHIPS OK Per Dr. Shaikh leung to give patient Ice chips.
[2019-07-11] MEDS: PANTOPRAZOLE 40 MG/10 ML VIAL INJ IV SCH (10:47)
[2019-07-11 13:00] VITALS: BP 138/89
--- NOTE | 2019-07-11 16:15 | NUR ---
NEW IV US guided 20 G IV insertion to left AC by PICC line nurse. Patient tolerated well.
--- NOTE | 2019-07-11 16:20 | NUR ---
PAIN Patient requesting pain medication. Patient verbalizes pain 8/10 from right nare/throat. Patient relates pain to NG tube. Will medicate patient per doctors orders.
[2019-07-11] MEDS: POTASSIUM CHL 20MEQ/100ML 100 ML IV SCH ×2 (16:23→18:29)
[2019-07-11 17:11] VITALS: BP 127/77
--- NOTE | 2019-07-11 20:08 | NUR ---
NG tube found to be partially dislodged. NG tube was marked to 40 cm when it should be 68 cm. Pushed NG tube to 65 cm and confirmed placement in stomach with auscultation. Will continue to monitor and assess.
[2019-07-11 22:00] VITALS: BP 164/87
--- NOTE | 2019-07-11 23:58 | NUR ---
Paging hospitalist because patient is continuing to have short periods of SVT with higher heart rate than previously. Patient has been having periods of SVT, usually ranging in 130-140 range. These events do not occur with pain and her vitals are unaffected. Patient did have low-grade fever: 100.1. Last WBC count was 5.9. Earlier this evening, patient had one episode of SVT which went into 150s this time. EKG performed: sinus tachycarida at 107, consistent with previous EKG taken during similar event. Vitals BP: 112/65, HR: 107, O2: 96%, Temp: 100.1.
--- NOTE | 2019-07-12 00:44 | NUR ---
Spoke to PIERCE Mcallister. Orders received: 1) BMP, 2) Magnesium level.
[2019-07-12] MEDS: D5W/SOD CHLO 0.9% 1,000 ML IV SCH (01:05)
[2019-07-12] MEDS: ONDANSETRON HCL 4 MG/2 ML VIAL IV PRN ×2 (02:58→07:31)
[2019-07-12] MEDS: MORPHINE SULFATE 4 MG/ML SYR/VIAL IV PRN ×2 (02:59→07:31)
[2019-07-12 05:00] VITALS: BP 128/78
[2019-07-12 06:00] LABS: Hematocrit 27.5 % (36.0-46.0)
[2019-07-12 06:14] LABS: BUN/Creatinine Ratio 10.2; Calcium 8.8 mg/dL (8.5-10.1); Magnesium 2.1 mg/dL (1.6-2.6); Potassium 3.1 mmol/L (3.5-5.1)
--- NOTE | 2019-07-12 07:30 | NUR ---
Opening shift note Assumed care patient in bed, no s/s of distress noted. NG tube in place draining green fluid. Bed in low position, locked, call light within reach. Patient updated on POC for the day and to call for assistance PRN, patient verbalized understanding. Will continue care.
[2019-07-12 09:00] VITALS: BP 142/99
[2019-07-12] MEDS: PANTOPRAZOLE 40 MG/10 ML VIAL INJ IV SCH (10:57)
[2019-07-12] MEDS: POTASSIUM CHL 20MEQ/100ML 100 ML IV SCH ×2 (10:57→12:34)
[2019-07-12 13:00] VITALS: BP 151/90
--- NOTE | 2019-07-12 14:00 | NUR ---
New orders Spoke with Dr. Arteaga regarding patient not passing flatus. New orders received to perform a KUB x-ray of the abdomen.
--- NOTE | 2019-07-12 15:00 | NUR ---
PATIENT AMBULATING Patient ambulating around nurses station. No distress noted. Patient informed to notify RN after flatus has been passed, patient verbalized understanding.
[2019-07-12] MEDS: D5W/ SOD CHL 0.9%/KCL 20MEQ 1,000 ML IV SCH (15:24)
[2019-07-12] MEDS: MUPIROCIN 2% OINT 15gm or 22gm EACHNOSTRI SCH ×2 (15:25→22:01)
[2019-07-12 16:51] VITALS: BP 143/89
--- NOTE | 2019-07-12 19:28 | NUR ---
Opening Shift Note Assumed care of patient, awake and alert x 4. No S/S of distress/SOB. NG tube secured at 65 cm and attached to LIS. Bed is in lowest position and locked. Call light within reach. Board updated. Tele box number matches monitor and leads are in correct placement. Instructed on POC and to call for assist PRN, will continue to monitor for changes Q1hr and PRN.
[2019-07-12 21:31] VITALS: BP 122/44
--- NOTE | 2019-07-12 22:30 | NUR ---
IV insertion IV access obtained, via clean technique by inserting a 22 gauge catheter into the left wrist after 2 attempts. IV secured properly. No trauma to site. Patient tolerated well.
[2019-07-13] MEDS: MORPHINE SULFATE 4 MG/ML SYR/VIAL IV PRN ×2 (00:03→06:35)
[2019-07-13] MEDS: ONDANSETRON HCL 4 MG/2 ML VIAL IV PRN ×2 (00:03→06:35)
[2019-07-13] MEDS: D5W/ SOD CHL 0.9%/KCL 20MEQ 1,000 ML IV SCH ×2 (01:09→14:01)
[2019-07-13 05:28] VITALS: BP 121/59
--- NOTE | 2019-07-13 07:48 | NUR ---
OPENING SHIFT NOTE Assumed care of patient. PT is awake and alert. No S/S of distress/SOB or pain. Call light is within reach, side rails up x2, with bed in lowest position. Contact precautions in place. Instructed on POC and to call for assist PRN, will continue to monitor for changes Q1hr and PRN.
[2019-07-13 09:15] VITALS: BP 134/83
[2019-07-13] MEDS: MUPIROCIN 2% OINT 15gm or 22gm EACHNOSTRI SCH ×2 (10:11→20:21)
[2019-07-13] MEDS: PANTOPRAZOLE 40 MG/10 ML VIAL INJ IV SCH (10:11)
--- NOTE | 2019-07-13 11:31 | NUR ---
REMOVED NGT AFTER CONFIRMING CLEARANCE WITH DR AMBRIZ. PT TOLERATED WELL. WILL ADVANCED DIET TO CLEAR LIQUID ORDERED.
[2019-07-13 13:05] VITALS: BP 136/65
--- NOTE | 2019-07-13 15:06 | NUR ---
Received call from MD Segura to keep patient on clear liquid diet, not full Liquid. Will endorse to ANISHA Corona.
[2019-07-13 17:22] VITALS: BP 145/79
[2019-07-13 22:07] VITALS: BP 132/80
[2019-07-14] MEDS: D5W/ SOD CHL 0.9%/KCL 20MEQ 1,000 ML IV SCH (03:00)
[2019-07-14] MEDS: MORPHINE SULFATE 4 MG/ML SYR/VIAL IV PRN (03:07)
[2019-07-14 05:35] VITALS: BP 115/66
[2019-07-14 06:22] LABS: Hematocrit 25.6 % (36.0-46.0); Hemoglobin 7.5 g/dL (12.2-16.2)
--- NOTE | 2019-07-14 07:45 | NUR ---
OPENING SHIFT NOTE Resumed care of patient. PT is awake and alert. No S/S of distress or SOB. Denies pain at this time. Call light is within reach, side rails up x2, with bed in lowest position. Instructed on POC and to call for assist PRN, will continue to monitor for changes Q1hr and PRN.
[2019-07-14 09:00] VITALS: BP 114/72
[2019-07-14] MEDS: MUPIROCIN 2% OINT 15gm or 22gm EACHNOSTRI SCH (10:05)
[2019-07-14] MEDS: PANTOPRAZOLE 40 MG/10 ML VIAL INJ IV SCH (10:05)
[2019-07-14 11:59] LABS: % Iron Saturation 3.5 % (15-50)
[2019-07-14] MEDS ORDERED: POTASSIUM CHL 20 Meq TABLET PO ONE (12:30)
[2019-07-14] MEDS ORDERED: D5W/ SOD CHL 0.9%/KCL 20MEQ 1,000 ML IV SCH (12:30)
[2019-07-14 12:39] VITALS: BP 137/81
--- NOTE | 2019-07-14 16:38 | NUR ---
AMA Note JUANA HERNANDEZ states they want to leave the hospital Against Medical Advice (AMA). Patient encouraged to stay for further treatment/stabilization. MD notified of patient's wishes. Patient advised of the risks and benefits of leaving AMA. Patient verbalized understanding. Patient encouraged to return to the ER if symptoms do not improve or worsen.
[2019-07-14] MEDS ORDERED: FERROUS SULFATE 325 MG TAB PO SCH (18:00)
== END 2019-07-14 16:30 | disposition left against medical advice (07) | DRG 254 ==
LOC: ER 17:53 → TELE 17:54 → TELE-WESTW 07-10 07:50
PROVIDERS: ADMIT Nurse Practitioner; ATTEND Internal Medicine
DX: K43.6 Other and unspecified ventral hernia with obstruction, without gangrene (principal); K56.51 Intestinal adhesions [bands], with partial obstruction; E66.01 Morbid (severe) obesity due to excess calories; Z68.42 Body mass index [BMI] 45.0-49.9, adult; E86.0 Dehydration; E87.6 Hypokalemia; D64.9 Anemia, unspecified; Z53.29 Procedure and treatment not carried out because of patient's decision for other reasons; J45.909 Unspecified asthma, uncomplicated; I10 Essential (primary) hypertension; Z90.49 Acquired absence of other specified parts of digestive tract; Z98.51 Tubal ligation status; Z82.49 Family history of ischemic heart disease and other diseases of the circulatory system
CPT/HCPCS: 36415; 71045; 74018; 74177; 74250; 80048; 80053; 81001; 83540; 83550; 83735; 84132; 84702; 85014; 85018; 85025; 85610; 85730; 87081; 96361; 96374; 96375; C9113; G0378; J2405; J3480; J7042

== ENCOUNTER 2020-02-28 20:42 | Inpatient (IN) | payer MEDICAID ==
[~2020-02-28] VITALS: Ht 157.5 cm; Wt 122.6 kg
[2020-02-28] MEDS ORDERED: ONDANSETRON HCL 4 MG/2 ML VIAL IV ONE (23:00)
[2020-02-28] MEDS ORDERED: MORPHINE SULF INJ 2 MG/ML SYRINGE 1ML IV ONE (23:00)
[2020-02-28] MEDS ORDERED: SODIUM CHLORIDE 0.9% 1,000 ML IV ONE (23:00)
[2020-02-29] MEDS ORDERED: PANTOPRAZOLE 40 MG/10 ML VIAL INJ IV ONE (00:45)
[2020-02-29] MEDS ORDERED: metroNIDAZOLE 500MG/100ML 100 ML IV ONE (01:15)
[2020-02-29] MEDS ORDERED: cefTRIAXone 1GM/50ML D5W 50 ML IV ONE (01:15)
[2020-02-29 01:38] LABS: Eosinophils # (auto) 0.1 10 ^3/uL (0-0.8); Hematocrit 27.2 % (36.0-46.0); Hemoglobin 8.5 g/dL (12.2-16.2); Lymphocytes # (auto) 1.4 10 ^3/uL (0.4-5.4); Mean Corpuscular Hemoglobin 25.3 pg (28.0-32.0); Mean Corpuscular Hgb Conc. 31.3 g/dL (32.0-36.0); Monocytes # (auto) 0.3 10 ^3/uL (0-1.3); Red Blood Cells 3.36 10^6/uL (4.0-5.20); White Blood Cell 4.7 10^3/uL (4.4-10.8)
[2020-02-29 01:40] LABS: Basophils # (auto) 0 10 ^3/uL (0-0.2); Eosinophils % (auto) 1.3 % (0.0-7.0); Lymphocytes % (auto) 29.3 % (10.0-50.0); Mean Corpuscular Volume 80.9 fL (80.0-100.0); Monocytes % (auto) 5.9 % (0.0-12.0); Neutrophils # (auto) 2.9 10 ^3/uL (1.6-8.6); Neutrophils % (auto) 62.5 % (37.0-80.0); Nucleated Red Blood Cells % 0.3 %; Platelet Count (auto) 222 10^3/uL (140-450)
[2020-02-29 01:42] LABS: Red Cell Distribution Width 28.1 % (11.8-14.3)
[2020-02-29 01:57] LABS: Urine Bacteria FEW /hpf (None Seen); Urine Blood 3+ /uL (Negative); Urine Mucus FEW (None Seen); Urine Specific Gravity 1.019 (1.001-1.035); Urine WBC 135 /hpf (0 - 5)
[2020-02-29 01:59] LABS: Amylase 24 U/L (25-115)
[2020-02-29 02:00] LABS: Calcium 8.2 mg/dL (8.5-10.1)
[2020-02-29 02:03] LABS: Albumin 2.3 g/dL (3.4-5.0); BUN/Creatinine Ratio 4.5
[2020-02-29 02:05] LABS: Bilirubin, Total 0.3 mg/dL (0.2-1.0)
[2020-02-29 02:05] LABS: Alcohol, Urine < 3.0 mg/dL (0-10); Amphetamine Screen, Urine NEGATIVE (NEGATIVE); Barbiturate Scree,Urine NEGATIVE (NEGATIVE); Benzodiazephine Screen, Urine NEGATIVE (NEGATIVE); Cannabinoid Screen, Urine NEGATIVE (NEGATIVE); Cocaine Screen, Urine NEGATIVE (NEGATIVE); Opiate Scree,Urine NEGATIVE (NEGATIVE); Phencyclidine Screen, Urine NEGATIVE (NEGATIVE)
[2020-02-29 02:14] LABS: Potassium 2.4 mmol/L (3.5-5.1)
[2020-02-29] MEDS ORDERED: POTASSIUM EFFERVESENT TAB 25 MEQ PO ONE ×2 (02:30)
[2020-02-29] MEDS ORDERED: SODIUM CHLORIDE 0.9% 2,000 ML IV ONE (03:15)
[2020-02-29] MEDS ORDERED: POTASSIUM PHOSPHATE 44 MEQ in D5W 5% 250 ML IV ONE (03:15)
[2020-02-29] MEDS ORDERED: DOCUSATE SOD 100 MG CAP PO PRN (04:30)
[2020-02-29] MEDS ORDERED: MORPHINE SULF INJ 2 MG/ML SYRINGE 1ML IV PRN (04:30)
[2020-02-29] MEDS ORDERED: SODIUM CHLORIDE 0.9% 1,000 ML IV SCH (04:30)
[2020-02-29] MEDS ORDERED: NITROGLYCERIN 0.4 MG SL TAB SL PRN (04:30)
[2020-02-29] MEDS ORDERED: ACETAMINOPHEN 325 MG TAB PO PRN (04:30)
[2020-02-29] MEDS: POTASSIUM CHL 20MEQ/100ML 100 ML IV SCH ×4 (05:26→16:53)
[2020-02-29] MEDS: metroNIDAZOLE 500MG/100ML 100 ML IV SCH ×3 (06:00→22:06)
[2020-02-29] MEDS: ONDANSETRON HCL 4 MG/2 ML VIAL IV PRN ×2 (07:15→20:55)
[2020-02-29] MEDS: MORPHINE SULFATE 4 MG/ML SYR/VIAL IV PRN ×4 (07:15→21:00)
[2020-02-29 07:38] LABS: Basophils # (auto) 0 10 ^3/uL (0-0.2); Basophils % (auto) 0.3 % (0.0-2.0); Eosinophils # (auto) 0 10 ^3/uL (0-0.8); Eosinophils % (auto) 1.3 % (0.0-7.0); Hemoglobin 7.4 g/dL (12.2-16.2); Mean Corpuscular Volume 81.5 fL (80.0-100.0); Monocytes # (auto) 0.3 10 ^3/uL (0-1.3); Monocytes % (auto) 7.7 % (0.0-12.0); Platelet Count (auto) 178 10^3/uL (140-450); White Blood Cell 3.3 10^3/uL (4.4-10.8)
[2020-02-29 07:41] LABS: Hematocrit 24.2 % (36.0-46.0); Lymphocytes # (auto) 0.9 10 ^3/uL (0.4-5.4); Lymphocytes % (auto) 26.2 % (10.0-50.0); Mean Corpuscular Hgb Conc. 30.7 g/dL (32.0-36.0); Neutrophils # (auto) 2.1 10 ^3/uL (1.6-8.6); Neutrophils % (auto) 64.5 % (37.0-80.0); Nucleated Red Blood Cells % 0.1 %; Red Blood Cells 2.97 10^6/uL (4.0-5.20)
[2020-02-29 07:58] LABS: Albumin 1.9 g/dL (3.4-5.0); BUN/Creatinine Ratio 6.1; Calcium 7.8 mg/dL (8.5-10.1)
[2020-02-29 08:01] LABS: Bilirubin, Total 0.3 mg/dL (0.2-1.0)
[2020-02-29 08:07] LABS: Potassium 2.6 mmol/L (3.5-5.1)
[2020-02-29 08:50] LABS: INR 1.03 (0.9-1.15); Partial Thromboplastin Time 22.1 sec (23.0-31.2)
[2020-02-29 09:00] VITALS: BP 115/82
--- NOTE | 2020-02-29 09:00 | NUR ---
Telemetry admit from ER JUANA HERNANDEZ admitted to Telemetry unit after SBAR received. Patient oriented to Sushila Le, primary RN, unit, room, bed, and unit policies regarding patient care and visiting hours. Patient now on continuous telemetry monitoring, tele box # 81 and telemetry reading on arrival to unit is sinus rhythm in the 80's. Updated on POC and instructed to call for assistance as needed, patient verbalized understanding. Bed locked in lowest position, side rails up x2, call light within reach. Will continue to monitor for changes.
[2020-02-29] MEDS: ENOXAPARIN SOD 40 MG/0.4 ML SYRINGE SC SCH (09:25)
[2020-02-29] MEDS: cefTRIAXone 1GM/50ML D5W 50 ML IV SCH (09:25)
[2020-02-29] MEDS: PANTOPRAZOLE 40 MG/10 ML VIAL INJ IV SCH (09:25)
--- NOTE | 2020-02-29 12:50 | NUR ---
SPOKE WITH LAB, CRITICAL POTASSIUM LEVEL OF 2.8 MD GALARZA PAGED.
[2020-02-29 13:00] VITALS: BP 121/83
[2020-02-29] MEDS ORDERED: SODIUM FERR GLUC 62.5MG/5ML 125 MG in SODIUM CHL 0.9% 100 ML IV ONE (13:00)
--- NOTE | 2020-02-29 13:04 | NUR ---
Nasogastric tube insertion Patient educated on need for NG tube. All questions addressed. NGT inserted to right nare per MD order. Placement verified by aspiration of stomach contents, auscultation and chest xray.
[2020-02-29] MEDS: D5W/SOD CHL 0.9%/KCL 40MEQ 1,000 ML IV SCH (14:03)
[2020-02-29] MEDS ORDERED: GASTROGRAFIN 120 ML SOL ONE (15:07)
[2020-02-29 17:00] VITALS: BP 141/95
--- NOTE | 2020-02-29 20:25 | NUR ---
Spoke with radiology, they said the bowel series study was completed and it is okay to reconnect to suction. Placement verified by auscultation, NG tube reconnected to low intermittent suction.
[2020-03-01 01:57] VITALS: BP 111/79
[2020-03-01] MEDS: MORPHINE SULFATE 4 MG/ML SYR/VIAL IV PRN ×5 (05:18→22:35)
[2020-03-01] MEDS: ONDANSETRON HCL 4 MG/2 ML VIAL IV PRN ×5 (05:18→22:35)
[2020-03-01] MEDS: D5W/SOD CHL 0.9%/KCL 40MEQ 1,000 ML IV SCH ×2 (05:30→16:12)
[2020-03-01 05:31] LABS: Basophils # (auto) 0 10 ^3/uL (0-0.2); Basophils % (auto) 0.4 % (0.0-2.0); Eosinophils # (auto) 0.1 10 ^3/uL (0-0.8); Eosinophils % (auto) 2.1 % (0.0-7.0); Hemoglobin 8.3 g/dL (12.2-16.2); Lymphocytes # (auto) 0.7 10 ^3/uL (0.4-5.4); Lymphocytes % (auto) 22.7 % (10.0-50.0); Mean Corpuscular Hemoglobin 25.4 pg (28.0-32.0); Mean Corpuscular Hgb Conc. 30.6 g/dL (32.0-36.0); Monocytes # (auto) 0.3 10 ^3/uL (0-1.3); Monocytes % (auto) 8.9 % (0.0-12.0); Neutrophils % (auto) 65.9 % (37.0-80.0); Nucleated Red Blood Cells % 0.1 %; Platelet Count (auto) 176 10^3/uL (140-450); Red Blood Cells 3.26 10^6/uL (4.0-5.20)
[2020-03-01 05:33] LABS: Red Cell Distribution Width 27.4 % (11.8-14.3)
[2020-03-01 05:40] LABS: Albumin 2.1 g/dL (3.4-5.0); Calcium 8.1 mg/dL (8.5-10.1); Potassium 3.1 mmol/L (3.5-5.1)
[2020-03-01 05:43] LABS: BUN/Creatinine Ratio 5.4; Bilirubin, Total 0.2 mg/dL (0.2-1.0); Total Protein 6.2 g/dL (6.4-8.2)
[2020-03-01 05:46] VITALS: BP 128/74
[2020-03-01] MEDS: metroNIDAZOLE 500MG/100ML 100 ML IV SCH ×3 (05:59→21:29)
--- NOTE | 2020-03-01 07:30 | NUR ---
Opening Shift Note Assumed care of patient, resting comfortably. No S/S of distress/SOB or pain on room air, NG tube to right nare connected to LIS. Instructed on POC and to call for assist PRN, will continue to monitor for changes Q1hr and PRN. Bed in low and locked position, rails up x2, no-slip socks on.
--- NOTE | 2020-03-01 07:30 | NUR ---
NG Tube output for noc shift 750cc. Endorsed care to dayshift ANISHA Azul.
[2020-03-01 08:27] VITALS: BP 126/73
[2020-03-01] MEDS: PANTOPRAZOLE 40 MG/10 ML VIAL INJ IV SCH (09:41)
[2020-03-01] MEDS: cefTRIAXone 1GM/50ML D5W 50 ML IV SCH (09:42)
[2020-03-01] MEDS: ENOXAPARIN SOD 40 MG/0.4 ML SYRINGE SC SCH (09:42)
--- NOTE | 2020-03-01 11:30 | NUR ---
DR RUIZ AT BEDSIDE NEW ORDERS ADDED, PER ICE CHIPS ARE OKAY
--- NOTE | 2020-03-01 12:18 | NUR ---
Nutrition Consult for N/V/D Est energy needs 6804-7420 kcal (14-18 kcal/kg BW 107.6kg) est protein needs 50-65g (1-1.3g/kg IBW 50kg) Will reassess prn. Addendum: 03/01/20 at [address] Amended: Links added.
[2020-03-01] MEDS: POTASSIUM CHL 20MEQ/100ML 100 ML IV SCH ×2 (12:25→14:54)
[2020-03-01 12:43] VITALS: BP 155/85
[2020-03-01] MEDS: SODIUM FERR GLUC 62.5MG/5ML 125 MG in SODIUM CHL 0.9% 100 ML IV SCH (13:54)
[2020-03-01 16:31] VITALS: BP 121/69
--- NOTE | 2020-03-01 19:13 | NUR ---
SHIFT CHANGE ENDORSED CARE TO ANISHA NEWELL
--- NOTE | 2020-03-01 19:40 | NUR ---
Opening Shift Note Assumed care of patient, awake and alert x4. No S/S of distress/SOB or pain. NG tube to right nare at low intermittent suction, placement verified by auscultation. LEJ 18g IV is patent and asymptomatic, it is infusing D5W in NS with 40 Meq of KCl. Call light is within reach, side rails up x2, bed is in the lowest position. Instructed on POC and to call for assist PRN, will continue to monitor for changes Q1hr and PRN.
[2020-03-01 21:00] VITALS: BP 139/68
[2020-03-02] MEDS: D5W/SOD CHL 0.9%/KCL 40MEQ 1,000 ML IV SCH ×2 (01:36→18:20)
[2020-03-02] MEDS: ONDANSETRON HCL 4 MG/2 ML VIAL IV PRN ×4 (03:52→20:54)
[2020-03-02 05:00] VITALS: BP 121/77
[2020-03-02] MEDS: MORPHINE SULFATE 4 MG/ML SYR/VIAL IV PRN ×4 (05:20→20:54)
[2020-03-02] MEDS: metroNIDAZOLE 500MG/100ML 100 ML IV SCH ×3 (05:53→21:42)
--- NOTE | 2020-03-02 06:54 | NUR ---
Closing note NG tube output for noc shift: 210cc of green drainage. Patient is resting in bed asleep, no S/S of pain or distress noted.
[2020-03-02 07:43] LABS: BUN/Creatinine Ratio 5.1; Calcium 8.2 mg/dL (8.5-10.1); Potassium 3.5 mmol/L (3.5-5.1)
--- NOTE | 2020-03-02 07:45 | NUR ---
Opening Shift Note Assumed care of patient, awake and alert. respirations are even and non labored on room air. NG tube is in the right nare set to LIS. No S/S of distress/SOB or pain. Bed is in the lowest and locked position with side rails up x 2 and call light within reach. Instructed on POC and to call for assist PRN, will continue to monitor for changes Q1hr and PRN.
[2020-03-02 08:43] VITALS: BP 121/71
[2020-03-02] MEDS: cefTRIAXone 1GM/50ML D5W 50 ML IV SCH (09:58)
[2020-03-02] MEDS: PANTOPRAZOLE 40 MG/10 ML VIAL INJ IV SCH (10:19)
[2020-03-02] MEDS: ENOXAPARIN SOD 40 MG/0.4 ML SYRINGE SC SCH (10:20)
--- NOTE | 2020-03-02 12:06 | NUR ---
Dr. Denney pageangela
[2020-03-02] MEDS: SODIUM FERR GLUC 62.5MG/5ML 125 MG in SODIUM CHL 0.9% 100 ML IV SCH (12:09)
[2020-03-02 13:00] VITALS: BP 135/79
[2020-03-02 17:00] VITALS: BP 141/72
[2020-03-02 22:00] VITALS: BP 140/92
[2020-03-03] MEDS: MORPHINE SULFATE 4 MG/ML SYR/VIAL IV PRN ×3 (02:50→21:19)
[2020-03-03] MEDS: ONDANSETRON HCL 4 MG/2 ML VIAL IV PRN ×3 (02:51→21:19)
[2020-03-03 05:00] VITALS: BP 119/68
--- NOTE | 2020-03-03 06:50 | NUR ---
URINE SAMPLE SENT TO LAB
[2020-03-03] MEDS: metroNIDAZOLE 500MG/100ML 100 ML IV SCH ×3 (06:59→21:20)
[2020-03-03 07:09] LABS: Basophils # (auto) 0 10 ^3/uL (0-0.2); Eosinophils # (auto) 0.1 10 ^3/uL (0-0.8); Eosinophils % (auto) 1.6 % (0.0-7.0); Lymphocytes # (auto) 0.8 10 ^3/uL (0.4-5.4); Monocytes # (auto) 0.3 10 ^3/uL (0-1.3); Neutrophils # (auto) 2.7 10 ^3/uL (1.6-8.6); Nucleated Red Blood Cells % 0.3 %
[2020-03-03 07:12] LABS: Basophils % (auto) 0.3 % (0.0-2.0); Hematocrit 24.4 % (36.0-46.0); Hemoglobin 7.3 g/dL (12.2-16.2); Lymphocytes % (auto) 21.2 % (10.0-50.0); Mean Corpuscular Hemoglobin 25.2 pg (28.0-32.0); Mean Corpuscular Hgb Conc. 30.1 g/dL (32.0-36.0); Mean Corpuscular Volume 83.6 fL (80.0-100.0); Monocytes % (auto) 7.4 % (0.0-12.0); Neutrophils % (auto) 69.5 % (37.0-80.0); Platelet Count (auto) 152 10^3/uL (140-450); Red Blood Cells 2.92 10^6/uL (4.0-5.20); White Blood Cell 3.8 10^3/uL (4.4-10.8)
[2020-03-03 07:34] LABS: Red Cell Distribution Width 27.8 % (11.8-14.3)
[2020-03-03] MEDS: D5W/SOD CHL 0.9%/KCL 40MEQ 1,000 ML IV SCH ×2 (07:40→21:20)
[2020-03-03 07:43] LABS: % Iron Saturation 45.1 % (15-50)
[2020-03-03 08:25] LABS: Urine Bacteria NONE SEEN /hpf (None Seen); Urine Blood 3+ /uL (Negative); Urine Hyaline Cast MANY /lpf (0 - 2); Urine Mucus FEW (None Seen); Urine Specific Gravity 1.024 (1.001-1.035); Urine WBC 18 /hpf (0 - 5)
[2020-03-03 08:59] VITALS: BP 131/79
[2020-03-03] MEDS: cefTRIAXone 1GM/50ML D5W 50 ML IV SCH (09:32)
[2020-03-03] MEDS: PANTOPRAZOLE 40 MG/10 ML VIAL INJ IV SCH (10:00)
[2020-03-03] MEDS: ENOXAPARIN SOD 40 MG/0.4 ML SYRINGE SC SCH (10:00)
[2020-03-03] MEDS ORDERED: LIDOCAINE W/ EPINEPHRINE 1% 20ML VIAL ONE (11:43)
[2020-03-03] MEDS ORDERED: LIDOCAINE 1% HCL (LOCAL ANESTH.) INJ 20ML MDV ONE (11:43)
[2020-03-03] MEDS ORDERED: BUPIVACAINE 0.25% INJ 50ML VIAL ONE (11:43)
--- NOTE | 2020-03-03 11:48 | NUR ---
Nutrition Followup Notes Pt wt is 105.8 kg Pt was not on the floor when rounded this morning. Pt is with a small bowel obstruction, abdominal pain, currently NPO for 3 days per RN doc. Est energy needs 5320-3207 kcal (14-18 kcal/kg BW 107.6kg) Est protein needs 50-65g (1-1.3g/kg IBW 50kg) Will reassess prn. LABS: Ca 8.2 L, Alb 2.1 L GI: Pt had 1 BM on 03/02 per RN doc. BS: 19 low risk. Refer to wound assessment report for further details. PES: 1) Obesity r/t caloric intake in excess of needs aeb pt with a BMI of 43.4kg/m2 2) Inadequate oral intake r/t current medical condition aeb pt with npo diet order Comments 1) Continue to monitor po intake, labs, skin 2) Refer pt to OPD on DC 3) Continue current plan of care
[2020-03-03] MEDS: SODIUM FERR GLUC 62.5MG/5ML 125 MG in SODIUM CHL 0.9% 100 ML IV SCH (12:00)
[2020-03-03] MEDS ORDERED: MIDAZOLAM HCL 1MG/1ML-2 ML VIAL ONE (12:31)
[2020-03-03] MEDS ORDERED: HYDROmorphone HCL 2 MG/ML VL ONE (12:31)
[2020-03-03] MEDS ORDERED: fentaNYL CITRATE 100 MCG/2 ML VL ONE ×2 (12:31→13:40)
[2020-03-03] MEDS ORDERED: DexAMETHasone SOD PHOS 10MG/1ML VIAL INJ ONE (12:37)
[2020-03-03] MEDS ORDERED: PROPOFOL 10 MG/ML 20 ML IV ONE (12:37)
[2020-03-03] MEDS ORDERED: SUCCINYLCHOLINE CHLORIDE 20 MG/ML 10ML VIAL IV ONE (12:46)
[2020-03-03 13:00] VITALS: BP 137/92
[2020-03-03] MEDS ORDERED: ETOMIDATE (2MG/ML) 20ML VIAL IV ONE (13:01)
[2020-03-03] MEDS ORDERED: ROCURONIUM 10MG/ML 10ML VIAL IV ONE (14:04)
[2020-03-03] MEDS ORDERED: ONDANSETRON HCL 4 MG/2 ML VIAL ONE (14:06)
[2020-03-03] MEDS ORDERED: NEOSTIGMINE 1 MG/ML INJ (10mg/10ML VIAL) ONE (14:58)
[2020-03-03] MEDS ORDERED: GLYCOPYRROLATE 0.2 MG/ML 1ML VIAL ONE (14:58)
[2020-03-03] MEDS ORDERED: MORPHINE SULFATE 4 MG/ML SYR/VIAL IV PRN (15:45)
[2020-03-03] MEDS ORDERED: HYDROmorphone HCL 2 MG/ML VL IV PRN (15:45)
[2020-03-03] MEDS ORDERED: ONDANSETRON HCL 4 MG/2 ML VIAL IV PRN (15:45)
[2020-03-03] MEDS ORDERED: LABETALOL HCL 5 MG/ML 4ML SYRINGE IV PRN (15:45)
[2020-03-03] MEDS ORDERED: ePHEDrine SULFATE 50 MG/ML AMP IV PRN (15:45)
[2020-03-03] MEDS ORDERED: KETOROLAC TROMETH 30 MG/ML 1ML VIAL IV ONE (15:45)
[2020-03-03] MEDS ORDERED: MIDAZOLAM HCL 1MG/1ML-2 ML VIAL IV PRN (15:45)
--- NOTE | 2020-03-03 16:31 | NUR ---
Patient returned from procedure. Report from Lucia LANCASTER. Patient is alert and oriented x4, talking to family on the phone. On 2 L NC, BP 147/93, HR 68, O2 95%, RR15, T97.9. No s/s of distress. Davis patent and draining. SCDs on patient. Two dressings to the abdomen, medial abdomen is vertical, clean dry and intact, and RLQ dressing has a circled drainage spot on the medipore dressing with len drain, no fluid at this time. Will continue to monitor.
[2020-03-03 22:00] VITALS: BP 145/81
[2020-03-04] MEDS: MORPHINE SULFATE 4 MG/ML SYR/VIAL IV PRN ×3 (02:37→16:58)
[2020-03-04] MEDS: ONDANSETRON HCL 4 MG/2 ML VIAL IV PRN ×3 (02:38→16:58)
[2020-03-04 05:00] VITALS: BP 123/68
[2020-03-04] MEDS: metroNIDAZOLE 500MG/100ML 100 ML IV SCH ×3 (06:51→21:45)
--- NOTE | 2020-03-04 07:10 | NUR ---
Opening Shift Note Assumed care of patient, awake and alert. No S/S of distress/SOB or pain. Instructed on POC and to call for assist PRN, will continue to monitor for changes Q1hr and PRN.
[2020-03-04 09:00] VITALS: BP 116/86
[2020-03-04] MEDS: cefTRIAXone 1GM/50ML D5W 50 ML IV SCH (09:00)
[2020-03-04] MEDS: PANTOPRAZOLE 40 MG/10 ML VIAL INJ IV SCH (09:32)
[2020-03-04] MEDS: ENOXAPARIN SOD 40 MG/0.4 ML SYRINGE SC SCH (09:32)
[2020-03-04 10:00] LABS: Basophils # (auto) 0 10 ^3/uL (0-0.2); Basophils % (auto) 0.2 % (0.0-2.0); Eosinophils # (auto) 0 10 ^3/uL (0-0.8); Lymphocytes # (auto) 0.7 10 ^3/uL (0.4-5.4); Nucleated Red Blood Cells % 0.4 %
[2020-03-04 10:04] LABS: Hematocrit 27.7 % (36.0-46.0); Hemoglobin 8.7 g/dL (12.2-16.2); Lymphocytes % (auto) 10.6 % (10.0-50.0); Mean Corpuscular Hemoglobin 26.3 pg (28.0-32.0); Mean Corpuscular Hgb Conc. 31.3 g/dL (32.0-36.0); Mean Corpuscular Volume 83.9 fL (80.0-100.0); Monocytes # (auto) 0.4 10 ^3/uL (0-1.3); Monocytes % (auto) 6.9 % (0.0-12.0); Neutrophils # (auto) 5.2 10 ^3/uL (1.6-8.6); Neutrophils % (auto) 82.3 % (37.0-80.0); Platelet Count (auto) 148 10^3/uL (140-450); White Blood Cell 6.3 10^3/uL (4.4-10.8)
[2020-03-04 10:10] LABS: Red Cell Distribution Width 27.1 % (11.8-14.3)
[2020-03-04] MEDS: D5W/SOD CHL 0.9%/KCL 40MEQ 1,000 ML IV SCH ×2 (10:20→23:44)
[2020-03-04 10:25] LABS: Albumin 1.9 g/dL (3.4-5.0); Calcium 8.5 mg/dL (8.5-10.1); Potassium 3.9 mmol/L (3.5-5.1)
[2020-03-04 10:30] LABS: BUN/Creatinine Ratio 9.6; Bilirubin, Total 0.4 mg/dL (0.2-1.0); Total Protein 5.9 g/dL (6.4-8.2)
[2020-03-04] MEDS: SODIUM FERR GLUC 62.5MG/5ML 125 MG in SODIUM CHL 0.9% 100 ML IV SCH (12:27)
[2020-03-04 13:00] VITALS: BP 118/81
[2020-03-04 16:55] VITALS: BP 114/74
--- NOTE | 2020-03-04 19:30 | NUR ---
Opening Shift Note Assumed care of patient, awake and alert. Dressing to abdomen clean, dry, and intact. MAGGIE x 1, no drainage noted. No S/S of distress/SOB or pain. Instructed on POC and to call for assist PRN, will continue to monitor for changes Q1hr and PRN.
[2020-03-04 21:55] VITALS: BP 135/87
--- NOTE | 2020-03-04 23:00 | NUR ---
Patient ambulated to the hallway with minimal assist. Care continued.
[2020-03-05] MEDS: MORPHINE SULFATE 4 MG/ML SYR/VIAL IV PRN ×4 (01:01→18:53)
[2020-03-05] MEDS: ONDANSETRON HCL 4 MG/2 ML VIAL IV PRN ×4 (01:02→18:53)
[2020-03-05 05:00] VITALS: BP 123/65
[2020-03-05] MEDS: metroNIDAZOLE 500MG/100ML 100 ML IV SCH ×3 (06:21→22:40)
[2020-03-05 08:00] VITALS: BP 128/81
[2020-03-05 08:43] VITALS: BP 128/81
[2020-03-05] MEDS: D5W/SOD CHL 0.9%/KCL 40MEQ 1,000 ML IV SCH ×2 (08:47→12:15)
[2020-03-05] MEDS: cefTRIAXone 1GM/50ML D5W 50 ML IV SCH (09:45)
[2020-03-05] MEDS: PANTOPRAZOLE 40 MG/10 ML VIAL INJ IV SCH (09:45)
--- NOTE | 2020-03-05 09:45 | NUR ---
Dr Fish bedside with patient discussing plan of care. Orders received and carried out.
[2020-03-05] MEDS: ENOXAPARIN SOD 40 MG/0.4 ML SYRINGE SC SCH (11:37)
[2020-03-05] MEDS: SODIUM FERR GLUC 62.5MG/5ML 125 MG in SODIUM CHL 0.9% 100 ML IV SCH (12:15)
--- NOTE | 2020-03-05 12:55 | NUR ---
Paged Олег, can patient be advanced to clear liquid diet?
[2020-03-05 13:00] VITALS: BP 122/78
--- NOTE | 2020-03-05 14:03 | NUR ---
Nutrition Followup Notes Pt wt is 105.8 kg Pt was with MD and Rn at time of rounds. pt is s/p exp lap per Md note. Pt is NPO with ice chips only. Pt possibly advance to clear liquid diet pending MD order. Will monitor pt diet advancement and tolerance Est energy needs 4249-2353 kcal (14-18 kcal/kg BW 107.6kg) Est protein needs 50-65g (1-1.3g/kg IBW 50kg) Will reassess prn. LABS: Na 146H, Creat 0.52L, BUn 5L, Alb 1.9L GI: Pt had 1 BM on 03/03 per RN doc. BS: 19 low risk. Refer to wound assessment report for further details. PES: 1) Obesity r/t caloric intake in excess of needs aeb pt with a BMI of 43.4kg/m2 2) Inadequate oral intake r/t current medical condition aeb pt with npo diet order Comments 1) Continue to monitor po intake, labs, skin 2) Advance diet as medically feasible 3) Refer pt to OPD on DC 4) Continue current plan of care
--- NOTE | 2020-03-05 15:05 | NUR ---
Paged Олег for orders to advance diet
--- NOTE | 2020-03-05 16:00 | NUR ---
Parmar catheter dc'd Order to discontinue parmar catheter. Parmar dc'd with clean technique following deflation of balloon. Patient tolerated well with no complaints of pain. Continue care.
[2020-03-05 16:34] VITALS: BP 121/78
[2020-03-05 22:00] VITALS: BP 131/80
[2020-03-06 05:00] VITALS: BP 131/86
[2020-03-06] MEDS: metroNIDAZOLE 500MG/100ML 100 ML IV SCH ×3 (05:09→21:41)
[2020-03-06] MEDS: MORPHINE SULFATE 4 MG/ML SYR/VIAL IV PRN ×3 (05:10→17:22)
[2020-03-06] MEDS: ONDANSETRON HCL 4 MG/2 ML VIAL IV PRN ×3 (05:10→17:22)
[2020-03-06 07:28] LABS: Basophils # (auto) 0 10 ^3/uL (0-0.2); Eosinophils # (auto) 0.1 10 ^3/uL (0-0.8); Lymphocytes # (auto) 0.8 10 ^3/uL (0.4-5.4); Monocytes # (auto) 0.3 10 ^3/uL (0-1.3); Nucleated Red Blood Cells % 0.2 %
[2020-03-06 07:30] LABS: Basophils % (auto) 0.5 % (0.0-2.0); Hematocrit 24.5 % (36.0-46.0); Hemoglobin 7.7 g/dL (12.2-16.2); Lymphocytes % (auto) 19.4 % (10.0-50.0); Mean Corpuscular Hemoglobin 26.2 pg (28.0-32.0); Mean Corpuscular Hgb Conc. 31.3 g/dL (32.0-36.0); Mean Corpuscular Volume 83.5 fL (80.0-100.0); Monocytes % (auto) 6.6 % (0.0-12.0); Neutrophils # (auto) 2.9 10 ^3/uL (1.6-8.6); Neutrophils % (auto) 71.5 % (37.0-80.0); Platelet Count (auto) 123 10^3/uL (140-450); Red Blood Cells 2.93 10^6/uL (4.0-5.20)
[2020-03-06 07:32] LABS: Red Cell Distribution Width 27.4 % (11.8-14.3)
--- NOTE | 2020-03-06 07:38 | NUR ---
MAGGIE drain had less than 1ml drainage at end of shift.
--- NOTE | 2020-03-06 07:39 | NUR ---
closing note pt resting in semi fowlers with HOB at thirty degrees. no s/s of distress. endorsed care to day shift RN Justina.
[2020-03-06 07:50] LABS: Calcium 8.1 mg/dL (8.5-10.1); Potassium 3.3 mmol/L (3.5-5.1)
[2020-03-06 07:52] LABS: BUN/Creatinine Ratio 18.4
[2020-03-06 09:04] VITALS: BP 128/78
[2020-03-06] MEDS: cefTRIAXone 1GM/50ML D5W 50 ML IV SCH (09:36)
[2020-03-06] MEDS: ENOXAPARIN SOD 40 MG/0.4 ML SYRINGE SC SCH (09:36)
[2020-03-06] MEDS: PANTOPRAZOLE 40 MG/10 ML VIAL INJ IV SCH (09:36)
[2020-03-06] MEDS ORDERED: POTASSIUM CHLORIDE 20 MEQ, LIDOCAINE 1% (LOCAL ANESTH.) 2 ML in SODIUM CHL 0.9% 100 ML IV ONE (09:45)
[2020-03-06] MEDS: D5W/SOD CHL 0.9%/KCL 40MEQ 1,000 ML IV SCH (12:03)
[2020-03-06] MEDS: SODIUM FERR GLUC 62.5MG/5ML 125 MG in SODIUM CHL 0.9% 100 ML IV SCH (12:09)
[2020-03-06 12:33] VITALS: BP 136/84
--- NOTE | 2020-03-06 13:30 | NUR ---
patient tolerated diet well will advance to full liq.
--- NOTE | 2020-03-06 16:31 | NUR ---
assessment Patient has no post discharge needs identified. I informed patient I will continue to monitor and follow up as appropriate for any post discharge needs. Addendum: 03/06/20 at 1632 by Shonda JERONIMO Amended: Links added.
[2020-03-06 16:57] VITALS: BP 130/88
[2020-03-06 22:00] VITALS: BP 136/77
[2020-03-07] MEDS: MORPHINE SULFATE 4 MG/ML SYR/VIAL IV PRN ×3 (00:43→21:41)
[2020-03-07] MEDS: ONDANSETRON HCL 4 MG/2 ML VIAL IV PRN ×3 (00:44→21:42)
[2020-03-07 05:00] VITALS: BP 125/76
[2020-03-07] MEDS: metroNIDAZOLE 500MG/100ML 100 ML IV SCH ×3 (06:29→21:26)
--- NOTE | 2020-03-07 06:46 | NUR ---
Patient lying in bed, eyes closed, respirations even and unlabored, appears asleep. Patient awakens to name and touch. No s/s of distress. Will endorse care to daysmireya LANCASTER. Addendum: 03/07/20 at 0649 by BIJU ROSENTHAL RN RN ADDITION: Call light within reach. Addendum: 03/07/20 at 0734 by BIJU ROSENTHAL RN RN ADDITION: No drainage noted from MAGGIE drain at time of original note.
--- NOTE | 2020-03-07 07:30 | NUR ---
RECEIVED REPORT FROM NIGHT NURSE. PATIENT RESTING IN BED, NO DISTRESS NOTED. WILL CONTINUE TO MONITOR.
[2020-03-07 09:00] VITALS: BP 139/84
[2020-03-07] MEDS: PANTOPRAZOLE 40 MG/10 ML VIAL INJ IV SCH (09:55)
[2020-03-07] MEDS: cefTRIAXone 1GM/50ML D5W 50 ML IV SCH (09:55)
[2020-03-07] MEDS: ENOXAPARIN SOD 40 MG/0.4 ML SYRINGE SC SCH (09:56)
--- NOTE | 2020-03-07 10:20 | NUR ---
IV REMOVAL IV TO RIGHT HAND FOUND LEAKING. IV REMOVED. CATHETER TIP INTACT, PRESSURE DRESSING APPLIED.
--- NOTE | 2020-03-07 10:25 | NUR ---
IV INSERTION IV INSERTED USING ASEPTIC TECHNIQUE. 22G TO THE LEFT UPPER ARM/ SHOULDER. PATENT AND FLUSHING. PATIENT TOLERATED IT WELL.
[2020-03-07] MEDS ORDERED: POTASSIUM EFFERVESENT TAB 25 MEQ PO ONE (11:00)
--- NOTE | 2020-03-07 11:01 | NUR ---
Nutrition Followup Notes Pt wt is 121.5 kg Pt was with RN at time of rounds. Pt is s/p exp lap per Md note. Pt is with a Clear Liquid diet, appetite is good aeb ave 88% PO intake over 2 meals per RN doc. Pt reported feeling better, has an appetite. Will monitor pt diet advancement and tolerance Est energy needs 5852-0198 kcal (14-18 kcal/kg BW 107.6kg) Est protein needs 50-65g (1-1.3g/kg IBW 50kg) Will reassess prn. LABS: K 3.3 L, Gluc 61 L, Ca 8.1 L, Alb 1.9 L GI: Pt had 1 BM on 03/06 per RN doc. BS: 18 mod risk. Refer to wound assessment report for further details. PES: 1) Obesity r/t caloric intake in excess of needs aeb pt with a BMI of 43.4kg/m2 2) Inadequate oral intake r/t current medical condition aeb pt with npo diet order Comments 1) Continue to monitor po intake, labs, skin 2) Advance diet as medically feasible 3) Refer pt to OPD on DC 4) Continue current plan of care
[2020-03-07 13:04] VITALS: BP 139/92
[2020-03-07 14:08] LABS: Basophils # (auto) 0 10 ^3/uL (0-0.2); Eosinophils # (auto) 0.1 10 ^3/uL (0-0.8); Hemoglobin 8.4 g/dL (12.2-16.2); Monocytes # (auto) 0.3 10 ^3/uL (0-1.3); Neutrophils # (auto) 2.3 10 ^3/uL (1.6-8.6); Nucleated Red Blood Cells % 0.3 %
[2020-03-07 14:10] LABS: Basophils % (auto) 0.6 % (0.0-2.0); Eosinophils % (auto) 2.9 % (0.0-7.0); Hematocrit 26.5 % (36.0-46.0); Lymphocytes # (auto) 0.9 10 ^3/uL (0.4-5.4); Lymphocytes % (auto) 24.6 % (10.0-50.0); Mean Corpuscular Hemoglobin 26.6 pg (28.0-32.0); Mean Corpuscular Hgb Conc. 31.8 g/dL (32.0-36.0); Mean Corpuscular Volume 83.6 fL (80.0-100.0); Monocytes % (auto) 8.2 % (0.0-12.0); Neutrophils % (auto) 63.7 % (37.0-80.0); Platelet Count (auto) 134 10^3/uL (140-450); Red Blood Cells 3.17 10^6/uL (4.0-5.20); White Blood Cell 3.5 10^3/uL (4.4-10.8)
[2020-03-07 14:14] LABS: Red Cell Distribution Width 27.3 % (11.8-14.3)
[2020-03-07 14:26] LABS: Albumin 1.8 g/dL (3.4-5.0); Anion Gap 5 (5-15); Blood Urea Nitrogen 3 mg/dL (7-18); Calcium 7.7 mg/dL (8.5-10.1); Carbon Dioxide 25 mmol/L (21-32); Chloride 107 mmol/L (98-107); Glucose 93 mg/dL (74-106); Potassium 3.1 mmol/L (3.5-5.1); Sodium 137 mmol/L (136-145)
[2020-03-07] MEDS: SODIUM FERR GLUC 62.5MG/5ML 125 MG in SODIUM CHL 0.9% 100 ML IV SCH (14:30)
[2020-03-07] MEDS: D5W/SOD CHL 0.9%/KCL 40MEQ 1,000 ML IV SCH (14:30)
[2020-03-07 14:32] LABS: Alanine Aminotransferase < 6 U/L (13-56); Alkaline Phosphatase 40 U/L (45-117); Aspartate Aminotransferase 6 U/L (15-37); BUN/Creatinine Ratio 6.1; Bilirubin, Total 0.3 mg/dL (0.2-1.0); GFR African American 173 mL/min; GFR Non-African American 143 mL/min; Total Protein 5.7 g/dL (6.4-8.2)
[2020-03-07 16:45] VITALS: BP 124/80
--- NOTE | 2020-03-07 18:30 | NUR ---
MAGGIE DRAIN MINIMAL DARK BROWN/ RED FLUID DRAINED FROM MAGGIE DRAIN. LESS THAN 1 ML.
--- NOTE | 2020-03-07 19:06 | NUR ---
PATIENT CARE ENDORSED TO NIGHT NURSE. PATIENT STABLE AT THIS TIME.
[2020-03-07 22:00] VITALS: BP 138/85
--- NOTE | 2020-03-08 01:52 | NUR ---
Received phone call from monitor technicians, patient had seven beats of ventricular tachycardia. Patient assessed and found asymptomatic. Vital signs: 98.0 degrees Fahrenheit, 71 HR, 16 RR, 99% O2, 131/75 mmHg, 0/10 pain. Patient states she was "scratching at the [leads]" at the time the ventricular tachycardia was occurring. Will page residential monitor hospitalist to notify. Waiting for call back at this time.
--- NOTE | 2020-03-08 03:02 | NUR ---
Received return call from storage management consultant hospitalist LAYER UP Christofer. LAYER UP informed of run of ventricular tachycardia, no new orders a this time. Will continue care.
[2020-03-08 05:00] VITALS: BP 134/83
[2020-03-08] MEDS: metroNIDAZOLE 500MG/100ML 100 ML IV SCH ×3 (06:03→21:16)
--- NOTE | 2020-03-08 07:15 | NUR ---
Patient lying in bed, awake and alert. No s/s of distress. Call light within reach. No drainage noted from MAGGIE drain. Will endorse care to dayshift RN.
--- NOTE | 2020-03-08 07:35 | NUR ---
RECEIVED REPORT FROM NIGHT NURSE. PATIENT RESTING IN BED, NO DISTRESS NOTED. WILL CONTINUE TO MONITOR.
[2020-03-08 09:00] VITALS: BP 133/87
[2020-03-08] MEDS: PANTOPRAZOLE 40 MG/10 ML VIAL INJ IV SCH (09:18)
[2020-03-08] MEDS: ENOXAPARIN SOD 40 MG/0.4 ML SYRINGE SC SCH (09:18)
[2020-03-08] MEDS: cefTRIAXone 1GM/50ML D5W 50 ML IV SCH (09:18)
[2020-03-08 12:29] LABS: Basophils # (auto) 0 10 ^3/uL (0-0.2); Eosinophils # (auto) 0.1 10 ^3/uL (0-0.8); Hematocrit 29.5 % (36.0-46.0); Lymphocytes # (auto) 0.8 10 ^3/uL (0.4-5.4); Monocytes # (auto) 0.3 10 ^3/uL (0-1.3); Neutrophils # (auto) 2.1 10 ^3/uL (1.6-8.6); Red Blood Cells 3.49 10^6/uL (4.0-5.20)
[2020-03-08 12:32] LABS: Basophils % (auto) 1.3 % (0.0-2.0); Hemoglobin 9.3 g/dL (12.2-16.2); Lymphocytes % (auto) 24.2 % (10.0-50.0); Mean Corpuscular Hemoglobin 26.7 pg (28.0-32.0); Mean Corpuscular Hgb Conc. 31.5 g/dL (32.0-36.0); Mean Corpuscular Volume 84.5 fL (80.0-100.0); Monocytes % (auto) 8.8 % (0.0-12.0); Neutrophils % (auto) 63.7 % (37.0-80.0); Nucleated Red Blood Cells % 0.2 %; Platelet Count (auto) 140 10^3/uL (140-450); White Blood Cell 3.4 10^3/uL (4.4-10.8)
[2020-03-08 12:33] LABS: Red Cell Distribution Width 28.2 % (11.8-14.3)
[2020-03-08] MEDS: D5W/SOD CHL 0.9%/KCL 40MEQ 1,000 ML IV SCH (12:38)
[2020-03-08] MEDS: SODIUM FERR GLUC 62.5MG/5ML 125 MG in SODIUM CHL 0.9% 100 ML IV SCH (12:38)
[2020-03-08 12:47] LABS: Potassium 3.3 mmol/L (3.5-5.1)
[2020-03-08 12:50] LABS: BUN/Creatinine Ratio 4.1
[2020-03-08 13:00] VITALS: BP 137/81
--- NOTE | 2020-03-08 13:53 | NUR ---
DOCTOR BROWN AT BEDSIDE. ORDERS RECEIVED, WILL PLACE AND CARRY OUT.
[2020-03-08] MEDS ORDERED: POTASSIUM EFFERVESENT TAB 25 MEQ PO ONE (14:00)
[2020-03-08] MEDS: HYDROcodone-ACET 5/325MG TAB PO PRN ×2 (14:25→21:17)
--- NOTE | 2020-03-08 16:14 | NUR ---
Midline Placement: Patient educated on need for midline placement. All risks and benefits explained and all questions and concerns addresses prior to procedure. 4Fr 20cm midline inserted via left basilic vein vein using Ultrasound. Sterile technique utilized. Blood return obtained from the single lumen and flushed easily with NS using proper technique. Midline secured with saline lock; biodisc and occlusive dressing applied. Primary RN notified. Midline lot #[id number]. Internal length 20cm Externl length 0cm
[2020-03-08 17:00] VITALS: BP 124/67
[2020-03-08] MEDS: Ensure HIGH Protein Chocolate 8oz Bottle PO SCH (18:00)
[2020-03-08 22:00] VITALS: BP 140/76
[2020-03-09 05:00] VITALS: BP 129/68
[2020-03-09] MEDS: metroNIDAZOLE 500MG/100ML 100 ML IV SCH (05:36)
[2020-03-09 08:29] LABS: Basophils # (auto) 0 10 ^3/uL (0-0.2); Eosinophils # (auto) 0.1 10 ^3/uL (0-0.8); Mean Corpuscular Hgb Conc. 31.5 g/dL (32.0-36.0); Monocytes # (auto) 0.4 10 ^3/uL (0-1.3); Nucleated Red Blood Cells % 0.2 %
[2020-03-09 08:33] LABS: Basophils % (auto) 0.5 % (0.0-2.0); Eosinophils % (auto) 1.9 % (0.0-7.0); Hematocrit 25.9 % (36.0-46.0); Hemoglobin 8.2 g/dL (12.2-16.2); Lymphocytes % (auto) 26.4 % (10.0-50.0); Mean Corpuscular Hemoglobin 26.5 pg (28.0-32.0); Mean Corpuscular Volume 84.3 fL (80.0-100.0); Monocytes % (auto) 10.5 % (0.0-12.0); Neutrophils # (auto) 2.2 10 ^3/uL (1.6-8.6); Neutrophils % (auto) 60.7 % (37.0-80.0); Platelet Count (auto) 149 10^3/uL (140-450); Red Blood Cells 3.08 10^6/uL (4.0-5.20); White Blood Cell 3.6 10^3/uL (4.4-10.8)
[2020-03-09 08:35] LABS: Red Cell Distribution Width 28.7 % (11.8-14.3)
[2020-03-09 08:38] LABS: Potassium 3.3 mmol/L (3.5-5.1)
[2020-03-09] MEDS: Ensure HIGH Protein Chocolate 8oz Bottle PO SCH ×3 (08:45→18:10)
[2020-03-09 09:00] VITALS: BP 118/76
[2020-03-09] MEDS: PANTOPRAZOLE 40 MG/10 ML VIAL INJ IV SCH (09:46)
[2020-03-09] MEDS: cefTRIAXone 1GM/50ML D5W 50 ML IV SCH (09:46)
[2020-03-09] MEDS: ENOXAPARIN SOD 40 MG/0.4 ML SYRINGE SC SCH (09:46)
[2020-03-09] MEDS: HYDROcodone-ACET 5/325MG TAB PO PRN ×2 (09:47→14:31)
[2020-03-09] MEDS ORDERED: POTASSIUM EFFERVESENT TAB 25 MEQ PO ONE (10:00)
[2020-03-09 10:24] LABS: Magnesium 1.8 mg/dL (1.6-2.6); Phosphorus 2.5 mg/dL (2.5-4.90)
[2020-03-09] MEDS: SODIUM FERR GLUC 62.5MG/5ML 125 MG in SODIUM CHL 0.9% 100 ML IV SCH (11:30)
[2020-03-09] MEDS: D5W/SOD CHL 0.9%/KCL 40MEQ 1,000 ML IV SCH (11:45)
--- NOTE | 2020-03-09 12:11 | NUR ---
Nutrition Followup Notes Pt wt is 122.6 kg Pt was sleeping when rounded this morning. Pt is now with a [facility] Soft diet, appetite is fair aeb ave 50% PO intake over 3 meals per RN doc. Will monitor pt diet advancement and tolerance Est energy needs 7883-4260 kcal (14-18 kcal/kg BW 107.6kg) Est protein needs 50-65g (1-1.3g/kg IBW 50kg) Will reassess prn. LABS: K 3.3 L, Ca 8.0 L, Alb 1.8 L GI: Pt had 1 BM on 03/06 per RN doc. BS: 18 mod risk. Refer to wound assessment report for further details. PES: 1) Obesity r/t caloric intake in excess of needs aeb pt with a BMI of 43.4kg/m2 2) Inadequate oral intake r/t current medical condition aeb pt with npo diet order Comments Will f/u in 3-5 days 1) Continue to monitor po intake, labs, skin 2) Advance diet as medically feasible 3) Refer pt to OPD on DC 4) Continue current plan of care
[2020-03-09 13:00] VITALS: BP 130/86
[2020-03-09] MEDS ORDERED: POTA-220 PO (13:43)
--- NOTE | 2020-03-09 16:43 | NUR ---
Spoke to and told her I am going to discharge the patient per her order but she did not leave any pain medication prescriptions. says she prefers that the patient gets motrin 200mg q 8 hours over the counter.
[2020-03-09 16:48] VITALS: BP 127/82
--- NOTE | 2020-03-09 18:55 | NUR ---
Discharge instructions given as ordered. Encourage to follow up with PCP Dr.Molly Dumont in 1 week, to also follow up with in 2 weeks. Patient states that she will do her appointments herself because of her scheduled. All questions and concerns addressed. Patient verbalized understanding. Educated patient on incision care patient verbalized understanding. Medication reconciliation form completed and copy given to patient.IV removed with catheter intact, pressure dressing applied. Telemetry unit returned to ICU. Patient taken to vehicle via wheelchair with all personal belongings, accompanied by staff and family member. No distress noted at time of departure.
== END 2020-03-09 18:57 | disposition home or self-care (01) | DRG 227 ==
LOC: ER 20:42 → TELE 20:43 → TELE-WESTW 02-29 08:14
PROVIDERS: ADMIT Nurse Practitioner Family; ATTEND Internal Medicine Nephrology
PROC: 0D9670Z Drainage of Stomach with Drainage Device, Via Natural or Artificial Opening (ICD-10-PCS; principal; 2020-02-29)
PROC: 0WQF0ZZ Repair Abdominal Wall, Open Approach (ICD-10-PCS; 2020-03-03)
PROC: 0DN80ZZ Release Small Intestine, Open Approach (ICD-10-PCS; 2020-03-03)
PROC: 30233N1 Transfusion of Nonautologous Red Blood Cells into Peripheral Vein, Percutaneous Approach (ICD-10-PCS; 2020-03-03)
DX: K43.0 Incisional hernia with obstruction, without gangrene (principal); K56.51 Intestinal adhesions [bands], with partial obstruction; E44.0 Moderate protein-calorie malnutrition; E87.6 Hypokalemia; I10 Essential (primary) hypertension; R31.9 Hematuria, unspecified; J45.909 Unspecified asthma, uncomplicated; D50.9 Iron deficiency anemia, unspecified; Z20.828 Contact with and (suspected) exposure to other viral communicable diseases; E66.01 Morbid (severe) obesity due to excess calories; K21.9 Gastro-esophageal reflux disease without esophagitis; K43.6 Other and unspecified ventral hernia with obstruction, without gangrene; K52.9 Noninfective gastroenteritis and colitis, unspecified; K76.9 Liver disease, unspecified; K83.8 Other specified diseases of biliary tract; Z82.49 Family history of ischemic heart disease and other diseases of the circulatory system; Z90.49 Acquired absence of other specified parts of digestive tract; Z98.51 Tubal ligation status; Z79.899 Other long term (current) drug therapy; Z68.42 Body mass index [BMI] 45.0-49.9, adult
CPT/HCPCS: 36415; 71045; 74018; 74176; 74250; 76705; 80048; 80053; 80307; 81001; 82105; 82150; 82378; 83540; 83550; 83690; 83735; 84100; 84132; 84443; 84484; 84702; 85025; 85610; 85730; 86803; 86850; 86900; 86901; 86920; 87426; 93005; 96361; 96365; 96368; 96375; C9113; G0378; J0330; J0696; J1100; J2001; J2250; J2405; J2704; J3480; J3490; J7060

== ENCOUNTER 2021-02-08 17:09 | Emergency (ER) | payer MEDICAID ==
[~2021-02-08] VITALS: Ht 157.5 cm; Wt 127.0 kg
[2021-02-08] MEDS: ALBUTEROL SULF 2.5 MG/0.5ML(0.5%) NEB SOLN NEB ONE (00:10)
[2021-02-08] MEDS: IPRATROPIUM BROM 0.5 MG/2.5ML INH SOL NEB ONE (00:10)
[~2021-02-08 17:09] MED LIST changes: -ALBUAER3 IN; -DOCU-94 PO; -METO-159 PO; +POTA-220 PO
[2021-02-08] MEDS ORDERED: cloNIDine HCL 0.1 MG TAB PO ONE (19:15)
[2021-02-08 21:16] LABS: Basophils # (auto) 0.1 10 ^3/uL (0-0.2); Eosinophils # (auto) 0.1 10 ^3/uL (0-0.8); Hemoglobin 8.9 g/dL (12.2-16.2); Monocytes # (auto) 0.5 10 ^3/uL (0-1.3); White Blood Cell 6.7 10^3/uL (4.4-10.8)
[2021-02-08 21:17] LABS: Basophils % (auto) 0.8 % (0.0-2.0); Eosinophils % (auto) 1.1 % (0.0-7.0); Hematocrit 29.1 % (36.0-46.0); Lymphocytes # (auto) 1.3 10 ^3/uL (0.4-5.4); Lymphocytes % (auto) 19.7 % (10.0-50.0); Mean Corpuscular Hemoglobin 22.5 pg (28.0-32.0); Mean Corpuscular Hgb Conc. 30.6 g/dL (32.0-36.0); Mean Corpuscular Volume 73.5 fL (80.0-100.0); Monocytes % (auto) 7.8 % (0.0-12.0); Neutrophils # (auto) 4.8 10 ^3/uL (1.6-8.6); Neutrophils % (auto) 70.6 % (37.0-80.0); Nucleated Red Blood Cells % 0.3 %; Red Blood Cells 3.96 10^6/uL (4.0-5.20)
[2021-02-08 21:20] LABS: Red Cell Distribution Width 22.5 % (11.8-14.3)
[2021-02-08 21:25] LABS: Albumin 3.1 g/dL (3.4-5.0); Amylase 23 U/L (25-115); Anion Gap 8 (5-15); Blood Urea Nitrogen 11 mg/dL (7-18); Calcium 8.6 mg/dL (8.5-10.1); Carbon Dioxide 23 mmol/L (21-32); Chloride 104 mmol/L (98-107); Glucose 86 mg/dL (74-106); Lipase 32 U/L (73-393); Potassium 3.9 mmol/L (3.5-5.1); Sodium 135 mmol/L (136-145)
[2021-02-08 21:26] LABS: INR 1.41 (0.9-1.15)
[2021-02-08 21:31] LABS: Alanine Aminotransferase 23 U/L (13-56); Alkaline Phosphatase 53 U/L (45-117); Aspartate Aminotransferase 23 U/L (15-37); BUN/Creatinine Ratio 15.5; Bilirubin, Total 0.8 mg/dL (0.2-1.0); Creatine Kinase IFCC 47 U/L (26-192); GFR African American 113 mL/min; GFR Non-African American 93 mL/min; Total Protein 7.4 g/dL (6.4-8.2)
[2021-02-08 23:52] LABS: Urine Bacteria NONE SEEN /hpf (None Seen); Urine Blood 3+ /uL (Negative); Urine Hyaline Cast FEW /lpf (0 - 2); Urine Specific Gravity 1.015 (1.001-1.035); Urine WBC 3 /hpf (0 - 5)
[2021-02-09] MEDS: IPRATROPIUM BROM 0.5 MG/2.5ML INH SOL NEB ONE (00:10)
[2021-02-09 00:44] VITALS: BP 191/103
== END 2021-02-09 01:50 | disposition home or self-care (01) ==
LOC: ER 17:09
DX: N39.0 Urinary tract infection, site not specified (principal); J45.901 Unspecified asthma with (acute) exacerbation; R60.1 Generalized edema; D64.9 Anemia, unspecified; N93.9 Abnormal uterine and vaginal bleeding, unspecified; R16.0 Hepatomegaly, not elsewhere classified; E66.9 Obesity, unspecified; I10 Essential (primary) hypertension; Z68.43 Body mass index [BMI] 50.0-59.9, adult; Z90.49 Acquired absence of other specified parts of digestive tract
CPT/HCPCS: 36415; 71045; 74176; 80053; 81001; 82150; 82550; 83690; 83880; 84484; 85025; 85379; 85610; 86850; 86900; 86901; 93971; 94640; 99285; J7644

== ENCOUNTER 2021-05-26 01:08 | Emergency (ER) | payer MEDICAID ==
[~2021-05-26] VITALS: Ht 157.5 cm; Wt 108.9 kg
[2021-05-26 04:10] VITALS: BP 142/88
== END 2021-05-26 06:48 | disposition home or self-care (01) ==
LOC: ER 01:10
DX: R10.9 Unspecified abdominal pain (principal); R07.89 Other chest pain; I10 Essential (primary) hypertension; J45.909 Unspecified asthma, uncomplicated; Z90.49 Acquired absence of other specified parts of digestive tract; Z79.899 Other long term (current) drug therapy
CPT/HCPCS: 71045

== ENCOUNTER 2022-04-04 16:42 | Emergency (ER) | payer MEDICAID ==
[~2022-04-04] VITALS: Ht 157.5 cm; Wt 103.8 kg
[2022-04-04] MEDS ORDERED: IOHEXOL 350 MG/ML 100ML IJ ONE (17:41)
[2022-04-04 17:42] LABS: Basophils # (auto) 0.1 10 ^3/uL (0-0.2); Basophils % (auto) 0.8 % (0.0-2.0); Eosinophils # (auto) 0.1 10 ^3/uL (0-0.8); Eosinophils % (auto) 0.7 % (0.0-7.0); Hematocrit 41.7 % (36.0-46.0); Hemoglobin 13.6 g/dL (12.2-16.2); Lymphocytes # (auto) 1.8 10 ^3/uL (0.4-5.4); Lymphocytes % (auto) 19.7 % (10.0-50.0); Mean Corpuscular Hemoglobin 27.9 pg (28.0-32.0); Mean Corpuscular Hgb Conc. 32.6 g/dL (32.0-36.0); Mean Corpuscular Volume 85.6 fL (80.0-100.0); Monocytes # (auto) 0.6 10 ^3/uL (0-1.3); Monocytes % (auto) 6.6 % (0.0-12.0); Neutrophils # (auto) 6.6 10 ^3/uL (1.6-8.6); Neutrophils % (auto) 72.2 % (37.0-80.0); Nucleated Red Blood Cells % 0.1 %; Red Blood Cells 4.87 10^6/uL (4.0-5.20); Red Cell Distribution Width 19.1 % (11.8-14.3); White Blood Cell 9.2 10^3/uL (4.4-10.8)
[2022-04-04] MEDS ORDERED: LABETALOL HCL 5 MG/ML 4ML SYRINGE IV ONE (17:45)
[2022-04-04 18:04] LABS: Albumin 3.7 g/dL (3.4-5.0); Calcium 9.4 mg/dL (8.5-10.1)
[2022-04-04 18:08] LABS: Bilirubin, Total 1.2 mg/dL (0.2-1.0); Total Protein 7.7 g/dL (6.4-8.2)
[2022-04-04] MEDS ORDERED: AMLO-496 PO (19:15)
[2022-04-04 19:50] VITALS: BP 198/129
== END 2022-04-04 19:51 | disposition home or self-care (01) ==
LOC: ER 16:42
DX: I10 Essential (primary) hypertension (principal); J45.909 Unspecified asthma, uncomplicated; Z98.51 Tubal ligation status; Z90.49 Acquired absence of other specified parts of digestive tract
CPT/HCPCS: 36415; 74175; 80053; 85025; 93005; 96374; 99285; J3490; Q9967

== ENCOUNTER 2022-04-17 03:16 | Emergency (ER) | payer MEDICAID ==
[~2022-04-17] VITALS: Ht 157.5 cm; Wt 95.0 kg
[~2022-04-17 03:16] MED LIST changes: +AMLO-496 PO
[2022-04-17] MEDS ORDERED: ONDANSETRON HCL 4 MG/2 ML VIAL IV ONE (03:30)
[2022-04-17] MEDS ORDERED: MORPHINE SULFATE 4 MG/ML SYR/VIAL IV ONE (03:30)
[2022-04-17] MEDS ORDERED: IBU600T PO (03:43)
[2022-04-17] MEDS ORDERED: SILV1CRE82 TOP (03:43)
[2022-04-17] MEDS ORDERED: SILVER SULFADIAZINE 1 % TOPICAL CREAM 50GM TOP ONE (03:45)
[2022-04-17] MEDS ORDERED: SODIUM CHLORIDE 0.9% 1,000 ML IV ONE ×2 (03:45)
[2022-04-17 04:19] LABS: Basophils # (auto) 0.1 10 ^3/uL (0-0.2); Basophils % (auto) 0.8 % (0.0-2.0); Eosinophils # (auto) 0.1 10 ^3/uL (0-0.8); Eosinophils % (auto) 0.8 % (0.0-7.0); Hematocrit 41.7 % (36.0-46.0); Hemoglobin 13.8 g/dL (12.2-16.2); Lymphocytes # (auto) 1.9 10 ^3/uL (0.4-5.4); Lymphocytes % (auto) 23.5 % (10.0-50.0); Mean Corpuscular Hemoglobin 28.1 pg (28.0-32.0); Mean Corpuscular Hgb Conc. 33.1 g/dL (32.0-36.0); Mean Corpuscular Volume 84.9 fL (80.0-100.0); Monocytes # (auto) 0.7 10 ^3/uL (0-1.3); Monocytes % (auto) 9.3 % (0.0-12.0); Neutrophils # (auto) 5.2 10 ^3/uL (1.6-8.6); Neutrophils % (auto) 65.6 % (37.0-80.0); Nucleated Red Blood Cells % 0.1 %; Red Blood Cells 4.91 10^6/uL (4.0-5.20); Red Cell Distribution Width 17.9 % (11.8-14.3); White Blood Cell 7.9 10^3/uL (4.4-10.8)
[2022-04-17 04:39] LABS: Albumin 3.6 g/dL (3.4-5.0); Calcium 9.3 mg/dL (8.5-10.1); Potassium 3.9 mmol/L (3.5-5.1)
[2022-04-17 04:41] LABS: BUN/Creatinine Ratio 14.8
[2022-04-17 04:54] LABS: Bilirubin, Total 0.3 mg/dL (0.2-1.0); Total Protein 8.1 g/dL (6.4-8.2)
[2022-04-17 06:01] VITALS: BP 165/93
[2022-04-17] MEDS ORDERED: HYDROcodone-ACET 10/325MG TAB PO ONE (06:30)
== END 2022-04-17 07:30 | disposition home or self-care (01) ==
LOC: EDBD 03:16 → ER 03:16
DX: T25.122A Burn of first degree of left foot, initial encounter (principal); T25.121A Burn of first degree of right foot, initial encounter; J45.909 Unspecified asthma, uncomplicated; I10 Essential (primary) hypertension; Z98.51 Tubal ligation status; Z90.49 Acquired absence of other specified parts of digestive tract; Z98.890 Other specified postprocedural states; Z79.899 Other long term (current) drug therapy; X16.XXXA Contact with hot heating appliances, radiators and pipes, initial encounter; Y93.89 Activity, other specified; Y92.89 Other specified places as the place of occurrence of the external cause; Y99.8 Other external cause status
CPT/HCPCS: 16000; 36415; 80053; 85025; 96361; 96374; 96375; 99284; J2270; J2405; J7030

== ENCOUNTER 2023-08-29 20:46 | Inpatient (IN) | payer MEDICAID ==
[~2023-08-29] VITALS: Ht 157.5 cm; Wt 112.2 kg
[~2023-08-29 20:46] MED LIST changes: -AMLO-496 PO; +AMLO1TAB23 PO; +IBU600T PO; +SILV1CRE82 TOP
[2023-08-29 21:42] LABS: Basophils # (auto) 0 10 ^3/uL (0-0.2); Basophils % (auto) 0.3 % (0.0-2.0); Eosinophils # (auto) 0 10 ^3/uL (0-0.8); Eosinophils % (auto) 0.2 % (0.0-7.0); Hematocrit 40.6 % (36.0-46.0); Hemoglobin 13.4 g/dL (12.2-16.2); Lymphocytes # (auto) 1.3 10 ^3/uL (0.4-5.4); Lymphocytes % (auto) 7.4 % (10.0-50.0); Mean Corpuscular Hemoglobin 31.3 pg (28.0-32.0); Mean Corpuscular Hgb Conc. 32.9 g/dL (32.0-36.0); Mean Corpuscular Volume 95.3 fL (80.0-100.0); Monocytes # (auto) 1.6 10 ^3/uL (0-1.3); Neutrophils # (auto) 14.8 10 ^3/uL (1.6-8.6); Neutrophils % (auto) 83.1 % (37.0-80.0); Red Blood Cells 4.26 10^6/uL (4.0-5.20); White Blood Cell 17.8 10^3/uL (4.4-10.8)
[2023-08-29 22:08] LABS: Alkaline Phosphatase 71 U/L (46-116); Anion Gap 9 (5-15); Aspartate Aminotransferase 9 U/L (13-40); Blood Urea Nitrogen 6 mg/dL (9-23); Calcium 9.8 mg/dL (8.5-10.1); Carbon Dioxide 27 mmol/L (20-30); Chloride 97 mmol/L (98-107); Glucose 98 mg/dL (74-106); Sodium 133 mmol/L (136-145)
[2023-08-29 22:09] LABS: Alanine Aminotransferase < 9 U/L (7-40); Total Protein 7.9 g/dL (5.7-8.2)
[2023-08-29] MEDS: ALBUTEROL SULF 2.5 MG/0.5ML(0.5%) NEB SOLN NEB ONE (22:39)
[2023-08-29] MEDS: IPRATROPIUM BROM 0.5 MG/2.5ML INH SOL NEB ONE (22:39)
[2023-08-30] VITALS (8 sets, daily range): BP systolic 98–129; BP diastolic 59–75; PULSE 82–93; RESP 15–18; TEMP 98.3–98.4; O2SAT 96–100
[2023-08-30 00:24] LABS: Urine Bacteria None Seen /hpf (None Seen)
[2023-08-30] MEDS: SODIUM CHLORIDE 0.9% 1,000 ML IV ONE (00:35)
[2023-08-30 00:48] LABS: Urine Blood 1+ /uL (Negative); Urine Clarity Ex.Turbid (Clear); Urine Color Orange (Yellow); Urine Hyaline Cast MOD /lpf (0 - 2); Urine Mucus FEW (None Seen); Urine Protein, UAD 2+ (Negative); Urine Specific Gravity 1.025 (1.001-1.035); Urine Urobilinogen 6 mg/dL (Negative); Urine WBC 397 /hpf (0 - 5); Urine WBC Clumps PRESENT /hpf (None Seen); Urine pH 5.5 (5.0-9.0)
[2023-08-30] MEDS: cefTRIAXone 1GM/50ML D5W 50 ML IV ONE (01:12)
[2023-08-30] MEDS ORDERED: NITR-87 PO (01:44)
[2023-08-30] MEDS ORDERED: ONDANSETRON HCL 4 MG/2 ML VIAL IV PRN (04:00)
[2023-08-30] MEDS ORDERED: ALBUTEROL SULF 2.5 MG/0.5ML(0.5%) NEB SOLN NEB PRN (04:00)
[2023-08-30] MEDS: METOPROLOL TARTRATE 25 MG TAB PO ONE (04:19)
[2023-08-30] MEDS: POTASSIUM CHL 20 Meq TABLET PO ONE ×2 (04:19→07:27)
[2023-08-30 05:05] LABS: Anion Gap 8 (5-15); Carbon Dioxide 27 mmol/L (20-30); Chloride 99 mmol/L (98-107); Potassium 2.7 mmol/L (3.5-5.1); Sodium 134 mmol/L (136-145)
[2023-08-30 05:06] LABS: Calcium 9.3 mg/dL (8.5-10.1)
[2023-08-30 05:11] LABS: BUN/Creatinine Ratio 10.1 (10.0-20.0); Blood Urea Nitrogen 7 mg/dL (9-23); Glucose 81 mg/dL (74-106)
[2023-08-30] MEDS: ACETAMINOPHEN 325 MG TAB PO PRN (06:01)
[2023-08-30] MEDS: amLODIPine BESYLATE 5 MG TAB PO SCH (10:24)
[2023-08-30] MEDS: ENOXAPARIN SOD 40 MG/0.4 ML SYRINGE SC SCH (10:24)
[2023-08-30] MEDS: MORPHINE SULFATE INJ 2 MG/ml SYRG IV PRN (10:25)
[2023-08-30 11:47] LABS: Basophils # (auto) 0 10 ^3/uL (0-0.2); Basophils % (auto) 0.2 % (0.0-2.0); Eosinophils # (auto) 0 10 ^3/uL (0-0.8); Eosinophils % (auto) 0.1 % (0.0-7.0); Hematocrit 38.7 % (36.0-46.0); Hemoglobin 12.4 g/dL (12.2-16.2); Lymphocytes % (auto) 7.4 % (10.0-50.0); Mean Corpuscular Hemoglobin 30.9 pg (28.0-32.0); Mean Corpuscular Hgb Conc. 31.9 g/dL (32.0-36.0); Mean Corpuscular Volume 96.9 fL (80.0-100.0); Monocytes # (auto) 1.3 10 ^3/uL (0-1.3); Monocytes % (auto) 9.7 % (0.0-12.0); Neutrophils # (auto) 10.9 10 ^3/uL (1.6-8.6); Neutrophils % (auto) 82.6 % (37.0-80.0); Red Blood Cells 3.99 10^6/uL (4.0-5.20); Red Cell Distribution Width 17.8 % (11.8-14.3); White Blood Cell 13.2 10^3/uL (4.4-10.8)
[2023-08-30] MEDS: METOPROLOL TARTRATE 1MG/1ML-5ML VIAL IV ONE (12:02)
[2023-08-30] MEDS: SODIUM CHLORIDE 0.9% 1,000 ML IV SCH (12:10)
[2023-08-30] MEDS: dilTIAZem 25 MG/5 ML VIAL IV ONE ×2 (12:52→12:53)
[2023-08-30 13:06] LABS: Potassium 4.3 mmol/L (3.5-5.1)
[2023-08-30 13:13] LABS: Magnesium 1.5 mg/dL (1.6-2.6)
[2023-08-30] MEDS: metroNIDAZOLE 500MG/100ML 100 ML IV SCH (14:54)
[2023-08-30] MEDS: MAGNESIUM SULFATE 1GM/100ML 100 ML IV SCH (14:54)
[2023-08-30] MEDS: IOHEXOL 350 MG/ML 100ML IJ ONE ×2 (15:56)
[2023-08-30] MEDS: VANCOMYCIN HCL 125 MG CAP PO SCH (18:24)
[2023-08-30] MEDS: METOPROLOL TARTRATE 25 MG TAB PO SCH (23:03)
[2023-08-31] VITALS (11 sets, daily range): BP systolic 98–145; BP diastolic 54–84; PULSE 82–144; RESP 18–22; TEMP 98.2–100; O2SAT 98–100
[2023-08-31] MEDS: cefTRIAXone 1GM/50ML D5W 50 ML IV SCH (01:10)
[2023-08-31 05:14] LABS: Basophils # (auto) 0.1 10 ^3/uL (0-0.2); Basophils % (auto) 0.4 % (0.0-2.0); Eosinophils # (auto) 0.1 10 ^3/uL (0-0.8); Eosinophils % (auto) 0.4 % (0.0-7.0); Hematocrit 38.3 % (36.0-46.0); Hemoglobin 12.6 g/dL (12.2-16.2); Lymphocytes # (auto) 1.1 10 ^3/uL (0.4-5.4); Lymphocytes % (auto) 6.3 % (10.0-50.0); Mean Corpuscular Hemoglobin 31.3 pg (28.0-32.0); Mean Corpuscular Hgb Conc. 32.8 g/dL (32.0-36.0); Mean Corpuscular Volume 95.2 fL (80.0-100.0); Monocytes # (auto) 1.9 10 ^3/uL (0-1.3); Monocytes % (auto) 11.4 % (0.0-12.0); Neutrophils # (auto) 13.8 10 ^3/uL (1.6-8.6); Neutrophils % (auto) 81.5 % (37.0-80.0); Nucleated Red Blood Cells % 0.1 %; Red Blood Cells 4.02 10^6/uL (4.0-5.20); Red Cell Distribution Width 17.6 % (11.8-14.3); White Blood Cell 16.9 10^3/uL (4.4-10.8)
[2023-08-31 05:44] LABS: Albumin 3.6 g/dL (3.2-4.8); Alkaline Phosphatase 69 U/L (46-116); Anion Gap 9 (5-15); Aspartate Aminotransferase 13 U/L (13-40); Calcium 9.5 mg/dL (8.5-10.1); Carbon Dioxide 24 mmol/L (20-30); Chloride 99 mmol/L (98-107); Glucose 90 mg/dL (74-106); Magnesium 1.8 mg/dL (1.6-2.6); Potassium 3.6 mmol/L (3.5-5.1); Sodium 132 mmol/L (136-145)
[2023-08-31 05:45] LABS: Bilirubin, Total 0.4 mg/dL (0.2-1.0); Total Protein 7.3 g/dL (5.7-8.2)
[2023-08-31 05:49] LABS: Alanine Aminotransferase < 9 U/L (7-40); BUN/Creatinine Ratio 8.6 (10.0-20.0); Blood Urea Nitrogen < 5 mg/dL (9-23)
[2023-08-31] MEDS: NITROGLYCERIN 0.4 MG SL TAB SL PRN (09:48)
[2023-08-31] MEDS: HYDROcodone-ACET 5/325MG TAB PO PRN (22:10)
[2023-09-01] VITALS (10 sets, daily range): BP systolic 86–130; BP diastolic 47–66; PULSE 80–145; RESP 16–22; TEMP 97.6–98.9; O2SAT 97–100
[2023-09-01 07:35] LABS: Basophils # (auto) 0 10 ^3/uL (0-0.2); Basophils % (auto) 0.2 % (0.0-2.0); Eosinophils # (auto) 0.1 10 ^3/uL (0-0.8); Hematocrit 37.9 % (36.0-46.0); Hemoglobin 12.4 g/dL (12.2-16.2); Lymphocytes # (auto) 0.9 10 ^3/uL (0.4-5.4); Lymphocytes % (auto) 7.8 % (10.0-50.0); Mean Corpuscular Hemoglobin 31.9 pg (28.0-32.0); Mean Corpuscular Hgb Conc. 32.7 g/dL (32.0-36.0); Mean Corpuscular Volume 97.6 fL (80.0-100.0); Monocytes # (auto) 1.1 10 ^3/uL (0-1.3); Monocytes % (auto) 9.4 % (0.0-12.0); Neutrophils # (auto) 9.5 10 ^3/uL (1.6-8.6); Neutrophils % (auto) 81.6 % (37.0-80.0); Red Blood Cells 3.88 10^6/uL (4.0-5.20); Red Cell Distribution Width 17.7 % (11.8-14.3); White Blood Cell 11.7 10^3/uL (4.4-10.8)
[2023-09-01 07:50] LABS: Alkaline Phosphatase 67 U/L (46-116); Anion Gap 9 (5-15); Calcium 9.6 mg/dL (8.5-10.1); Carbon Dioxide 26 mmol/L (20-30); Chloride 99 mmol/L (98-107); Glucose 79 mg/dL (74-106); Sodium 134 mmol/L (136-145)
[2023-09-01 07:51] LABS: Magnesium 1.7 mg/dL (1.6-2.6)
[2023-09-01 07:52] LABS: Albumin 3.3 g/dL (3.2-4.8); Aspartate Aminotransferase 9 U/L (13-40); Bilirubin, Total 0.3 mg/dL (0.2-1.0)
[2023-09-01 07:53] LABS: Total Protein 6.8 g/dL (5.7-8.2)
[2023-09-01 07:54] LABS: Alanine Aminotransferase < 9 U/L (7-40); BUN/Creatinine Ratio 9.4 (10.0-20.0); Blood Urea Nitrogen < 5 mg/dL (9-23)
[2023-09-02] VITALS (7 sets, daily range): BP systolic 94–126; BP diastolic 51–71; PULSE 79–89; RESP 17–20; TEMP 97.4–98.6; O2SAT 92–100
[2023-09-03] VITALS (8 sets, daily range): BP systolic 108–125; BP diastolic 53–70; PULSE 74–92; RESP 18–20; TEMP 97.9–98.7; O2SAT 92–100
[2023-09-03] MEDS: MORPHINE SULFATE INJ 2 MG/ml SYRG IV PRN (17:53)
[2023-09-04] VITALS (8 sets, daily range): BP systolic 104–136; BP diastolic 55–95; PULSE 77–93; RESP 16–20; TEMP 97.9–98.7; O2SAT 98–100
[2023-09-04 14:12] LABS: Chloride 100 mmol/L (98-107); Potassium 3.1 mmol/L (3.5-5.1); Sodium 137 mmol/L (136-145)
[2023-09-04 14:13] LABS: Anion Gap 5 (5-15); Carbon Dioxide 32 mmol/L (20-30)
[2023-09-04 14:14] LABS: Calcium 8.8 mg/dL (8.5-10.1)
[2023-09-04 14:18] LABS: Glucose 90 mg/dL (74-106)
[2023-09-04 14:53] LABS: BUN/Creatinine Ratio 10.4 (10.0-20.0); Blood Urea Nitrogen < 5 mg/dL (9-23)
[2023-09-05] VITALS (9 sets, daily range): BP systolic 113–137; BP diastolic 54–79; PULSE 63–83; RESP 14–20; TEMP 97.4–98.8; O2SAT 97–100
[2023-09-05 05:48] LABS: Basophils # (auto) 0 10 ^3/uL (0-0.2); Basophils % (auto) 0.5 % (0.0-2.0); Eosinophils # (auto) 0.1 10 ^3/uL (0-0.8); Eosinophils % (auto) 0.5 % (0.0-7.0); Hemoglobin 11.2 g/dL (12.2-16.2); Lymphocytes # (auto) 0.8 10 ^3/uL (0.4-5.4); Lymphocytes % (auto) 8.2 % (10.0-50.0); Mean Corpuscular Hemoglobin 31.7 pg (28.0-32.0); Mean Corpuscular Hgb Conc. 32.9 g/dL (32.0-36.0); Mean Corpuscular Volume 96.5 fL (80.0-100.0); Monocytes % (auto) 10.2 % (0.0-12.0); Neutrophils # (auto) 7.7 10 ^3/uL (1.6-8.6); Neutrophils % (auto) 80.6 % (37.0-80.0); Red Blood Cells 3.53 10^6/uL (4.0-5.20); Red Cell Distribution Width 17.5 % (11.8-14.3); White Blood Cell 9.6 10^3/uL (4.4-10.8)
[2023-09-05 05:55] LABS: Albumin 2.7 g/dL (3.2-4.8); Alkaline Phosphatase 44 U/L (46-116); Anion Gap 6 (5-15); Aspartate Aminotransferase 9 U/L (13-40); Calcium 8.4 mg/dL (8.7-10.4); Carbon Dioxide 29 mmol/L (20-30); Chloride 101 mmol/L (98-107); Glucose 89 mg/dL (74-106); Magnesium 1.7 mg/dL (1.6-2.6); Potassium 2.8 mmol/L (3.5-5.1); Sodium 136 mmol/L (136-145)
[2023-09-05 05:56] LABS: Bilirubin, Total 0.2 mg/dL (0.2-1.0)
[2023-09-05 06:26] LABS: Alanine Aminotransferase < 9 U/L (7-40); BUN/Creatinine Ratio 13.2 (10.0-20.0); Blood Urea Nitrogen < 5 mg/dL (9-23)
[2023-09-05] MEDS: POTASSIUM CHL 20 Meq TABLET PO ONE (12:43)
[2023-09-05] MEDS: MAGNESIUM SULFATE 1GM/100ML 100 ML IV SCH (12:43)
[2023-09-05] MEDS: DIPHENOXYLATE W/ATROPINE 2.5 MG TAB PO PRN (16:15)
[2023-09-06 01:00] VITALS: BP 107/49; PULSE 76; RESP 18; TEMP 98.1; O2SAT 99
[2023-09-06 05:00] VITALS: BP 137/66; PULSE 75; RESP 18; TEMP 97.9; O2SAT 97
[2023-09-06 06:59] LABS: Basophils # (auto) 0 10 ^3/uL (0-0.2); Basophils % (auto) 0.2 % (0.0-2.0); Eosinophils # (auto) 0 10 ^3/uL (0-0.8); Eosinophils % (auto) 0.3 % (0.0-7.0); Hematocrit 41.3 % (36.0-46.0); Hemoglobin 13.1 g/dL (12.2-16.2); Lymphocytes # (auto) 1.5 10 ^3/uL (0.4-5.4); Lymphocytes % (auto) 10.4 % (10.0-50.0); Mean Corpuscular Hgb Conc. 31.8 g/dL (32.0-36.0); Mean Corpuscular Volume 97.4 fL (80.0-100.0); Monocytes # (auto) 1.2 10 ^3/uL (0-1.3); Monocytes % (auto) 8.5 % (0.0-12.0); Neutrophils # (auto) 11.8 10 ^3/uL (1.6-8.6); Neutrophils % (auto) 80.6 % (37.0-80.0); Nucleated Red Blood Cells % 0.1 %; Red Blood Cells 4.24 10^6/uL (4.0-5.20); Red Cell Distribution Width 18.2 % (11.8-14.3); White Blood Cell 14.7 10^3/uL (4.4-10.8)
[2023-09-06 07:35] LABS: Alkaline Phosphatase 49 U/L (46-116); Anion Gap 5 (5-15); Calcium 9.3 mg/dL (8.5-10.1); Carbon Dioxide 30 mmol/L (20-30); Chloride 100 mmol/L (98-107); Glucose 87 mg/dL (74-106); Magnesium 1.8 mg/dL (1.6-2.6); Potassium 3.1 mmol/L (3.5-5.1); Sodium 135 mmol/L (136-145)
[2023-09-06 07:36] LABS: Albumin 3.4 g/dL (3.2-4.8); Aspartate Aminotransferase 9 U/L (13-40); BUN/Creatinine Ratio 10.9 (10.0-20.0); Blood Urea Nitrogen < 5 mg/dL (9-23)
[2023-09-06 07:37] LABS: Alanine Aminotransferase < 9 U/L (7-40); Bilirubin, Total 0.2 mg/dL (0.2-1.0); Total Protein 7.1 g/dL (5.7-8.2)
[2023-09-06 08:10] VITALS: PULSE 77; PULSE 79; RESP 19; O2SAT 100
[2023-09-06 08:38] VITALS: BP 129/78; PULSE 79; RESP 19; TEMP 98.6; O2SAT 100
[2023-09-06] MEDS: POTASSIUM CHL 20 Meq TABLET PO ONE (09:28)
[2023-09-06] MEDS: MAGNESIUM OXIDE 400 MG TAB PO SCH (09:29)
[2023-09-06] MEDS ORDERED: DIPH2.5T73 PO ×3 (11:20→15:01)
[2023-09-06] MEDS ORDERED: MET25T PO (11:21)
[2023-09-06] MEDS ORDERED: AMLO1TAB23 PO (11:21)
[2023-09-06] MEDS ORDERED: MAGN200T11 PO (11:23)
[2023-09-06] MEDS ORDERED: TRAM50TA2 PO (11:23)
[2023-09-06] MEDS ORDERED: POTA-211 PO (11:23)
[2023-09-06 12:48] VITALS: BP 124/65; PULSE 74; RESP 18; TEMP 98.7; O2SAT 100
[2023-09-06 14:07] VITALS: BP 124/65; PULSE 74; RESP 18; TEMP 98.7; O2SAT 100
== END 2023-09-06 16:10 | disposition home or self-care (01) | DRG 426 ==
LOC: ER 20:46 → OVERFLOW 08-30 04:00 → TELE-WESTW 08-30 22:03
PROVIDERS: ADMIT Internal Medicine Geriatric Medicine; ATTEND Internal Medicine Geriatric Medicine
PROC: 05HB33Z Insertion of Infusion Device into Right Basilic Vein, Percutaneous Approach (ICD-10-PCS; principal; 2023-09-04)
PROC: B54MZZA Ultrasonography of Right Upper Extremity Veins, Guidance (ICD-10-PCS; 2023-09-04)
DX: E87.1 Hypo-osmolality and hyponatremia (principal); N17.0 Acute kidney failure with tubular necrosis; R19.7 Diarrhea, unspecified; E66.01 Morbid (severe) obesity due to excess calories; E87.6 Hypokalemia; I10 Essential (primary) hypertension; N39.0 Urinary tract infection, site not specified; J45.909 Unspecified asthma, uncomplicated; E86.0 Dehydration; Z90.49 Acquired absence of other specified parts of digestive tract; Z98.51 Tubal ligation status; Z82.49 Family history of ischemic heart disease and other diseases of the circulatory system; Z68.42 Body mass index [BMI] 45.0-49.9, adult; D72.829 Elevated white blood cell count, unspecified
CPT/HCPCS: 36415; 71045; 71275; 80048; 80053; 80061; 81001; 83036; 83605; 83735; 83880; 84132; 84443; 84484; 85025; 87040; 87493; 93005; 93306; 94640; 96361; 96365; G0378; J3490